=== PATIENT | male | born 1950 | race Caucasian/White ===

== ENCOUNTER 2017-09-08 18:57 | Inpatient (IN) | payer MEDICARE ==
[~2017-09-08] VITALS: Ht 165.1 cm; Wt 68.1 kg
--- NOTE | 2017-09-08 19:06 | PHYS DOC ---
Adult General Chief Complaint Chief Complaint: CHEST PAIN HPI HPI Patient is a 66 year old male presenting to the emergency department for evaluation of substernal chest pain that started approximately 45 minutes prior to arrival. He Says that his gait has been off and [place] and [place] forward striking his chest. Is that the trauma itself is what caused his chest to start hurting. Patient says it is achy. He has some shortness of breath with it but no nausea vomiting or diaphoresis. Patient is a very poor vasculopath and his had triple bypass surgery in 2009 and he says 10-12 stents in his heart and multiple stents in his leg as well. He is a heavy smoker and has hypertension and high cholesterol but no diabetes. He already took a 325 mg aspirin prior to arrival. Patient says that he takes a Plavix daily as well. Review of Systems Review of Systems Constitutional: Denies fever or chills [] Eyes: Denies change in visual acuity, redness, or eye pain [] HENT: Denies nasal congestion or sore throat [] Respiratory: Denies cough or shortness of breath [] Cardiovascular: + CP GI: Denies abdominal pain, nausea, vomiting, bloody stools or diarrhea [] : Denies dysuria or hematuria [] Musculoskeletal: Denies back pain or joint pain [] Integument: Denies rash or skin lesions [] Neurologic: Denies headache, focal weakness or sensory changes [] Current Medications Current Medications Current Medications Medications (Trade) Dose Ordered Sig/Paul Start Time Stop Time Status Last Admin Dose Admin Fentanyl Citrate (Fentanyl 2ml Vial) 50 mcg PRN Q2HR PRN 09/08/17 20:15 09/09/17 20:14 Ondansetron HCl (Zofran) 4 mg PRN Q8HRS PRN 09/08/17 20:15 09/09/17 20:14 Allergies Allergies Allergies Coded Allergies Type Severity Reaction Last Updated Verified No Known Drug Allergies 09/08/17 No Physical Exam Physical Exam Constitutional: Well developed, well nourished, no acute distress, non-toxic appearance. [] HENT: Normocephalic, atraumatic, bilateral external ears normal, oropharynx moist, no oral exudates, nose normal. [] Eyes: PERRLA, EOMI, conjunctiva normal, no discharge. [] Neck: Normal range of motion, no tenderness, supple, no stridor. [] Cardiovascular:Heart rate regular rhythm, no murmur [] Lungs & Thorax: Bilateral breath sounds clear to auscultation [] Abdomen: Bowel sounds normal, soft, no tenderness, no masses, no pulsatile masses. [] Skin: Warm, dry, no erythema, no rash. [] Back: No tenderness, no CVA tenderness. [] Extremities: No tenderness, no cyanosis, no clubbing, ROM intact, no edema. [] Neurologic: Alert and oriented X 3, normal motor function, normal sensory function, no focal deficits noted. [] Current Patient Data Vital Signs Vital Signs Date Time Temp Pulse Resp B/P (MAP) Pulse Ox O2 Delivery O2 Flow Rate FiO2 09/08/17 20:05 91 22 142/64 (90) 97 Room Air 09/08/17 19:08 97.7 97.7 Lab Values Laboratory Tests Test 09/08/17 19:15 09/08/17 19:20 White Blood Count 6.2 x10^3/uL (4.0-11.0) Red Blood Count 3.77 x10^6/uL (4.30-5.70) L Hemoglobin 10.4 g/dL (13.0-17.5) L Hematocrit 32.5 % (39.0-53.0) L Mean Corpuscular Volume 86 fL (79-100) Mean Corpuscular Hemoglobin 28 pg (25-35) Mean Corpuscular Hemoglobin Concent 32 g/dL (31-37) Red Cell Distribution Width 16.0 % (11.5-14.5) H Platelet Count 281 x10^3/uL (140-400) Neutrophils (%) (Auto) 62 % (31-73) Lymphocytes (%) (Auto) 24 % (24-48) Monocytes (%) (Auto) 11 % (0-9) H Eosinophils (%) (Auto) 1 % (0-3) Basophils (%) (Auto) 2 % (0-3) Neutrophils # (Auto) 3.8 x10^3uL (1.8-7.7) Lymphocytes # (Auto) 1.5 x10^3/uL (1.0-4.8) Monocytes # (Auto) 0.7 x10^3/uL (0.0-1.1) Eosinophils # (Auto) 0.1 x10^3/uL (0.0-0.7) Basophils # (Auto) 0.1 x10^3/uL (0.0-0.2) Prothrombin Time 13.4 SEC (11.7-14.0) Prothrombin Time INR 1.1 (0.8-1.1) PTT 30 SEC (24-38) Sodium Level 143 mmol/L (136-145) Potassium Level 3.5 mmol/L (3.5-5.1) Chloride Level 106 mmol/L (98-107) Carbon Dioxide Level 26 mmol/L (21-32) Anion Gap 11 (6-14) Blood Urea Nitrogen 23 mg/dL (8-26) Creatinine 1.0 mg/dL (0.7-1.3) Estimated GFR (Cockcroft-Gault) 74.3 BUN/Creatinine Ratio 23 (6-20) H Glucose Level 104 mg/dL (70-99) H Calcium Level 9.1 mg/dL (8.5-10.1) Magnesium Level 2.2 mg/dL (1.8-2.4) Total Bilirubin 0.3 mg/dL (0.2-1.0) Aspartate Amino Transferase (AST) 13 U/L (15-37) L Alanine Aminotransferase (ALT) 15 U/L (16-63) L Alkaline Phosphatase 140 U/L (46-116) H Creatine Kinase 57 U/L (39-308) Troponin I Quantitative 0.121 ng/mL (0.000-0.055) VE-Asc-P-Type Natriuretic Peptide 57193 pg/mL (0-124) H Total Protein 7.5 g/dL (6.4-8.2) Albumin 3.7 g/dL (3.4-5.0) Albumin/Globulin Ratio 1.0 (1.0-1.7) Lipase 83 U/L (73-393) Ethyl Alcohol Level < 10 mg/dL (0-10) Urine Opiates Screen Neg (NEG) Urine Methadone Screen Neg (NEG) Urine Barbiturates Pos (NEG) Urine Phencyclidine Screen Neg (NEG) Urine Amphetamine/Methamphetamine Neg (NEG) Urine Benzodiazepines Screen Pos (NEG) Urine Cocaine Screen Neg (NEG) Urine Cannabinoids Screen Neg (NEG) Urine Ethyl Alcohol Neg (NEG) Laboratory Tests 09/08/17 19:15 Laboratory Tests 09/08/17 19:15 EKG EKG Sinus rhythm at 99 beats per minutes with leftward axis no obvious ST elevation or depression with inverted T waves in leads aVL and V1 and V2. Radiology/Procedures Radiology/Procedures Normal mediastinum with cardiomegaly no obvious free air pneumothorax or opacity Course & Med Decision Making Course & Med Decision Making Patient with more of a traumatic description of his chest pain. We'll check labs and reassess symptoms. Of note patient said that he did just have a heart catheterization 3-4 months ago at [facility]. Troponin is slightly elevated and I have no old labs to compare to. Patient already received aspirin and he does take Plavix. Will speak to cardiology and defer further anticoagulation at this point. Patient admitted to the CVC unit in guarded condition. Dragon Disclaimer Dragon Disclaimer This electronic medical record was generated, in whole or in part, using a voice recognition dictation system. Departure Departure Impression: Primary Impression: NSTEMI (non-ST elevated myocardial infarction) Additional Impression: Elevated brain natriuretic peptide (BNP) level Disposition: ADMITTED INPATIENT Admitting Physician: Other ([facility]) Condition: GUARDED Problem Qualifiers SHERI MEHTA DO Sep 08, 2017 19:06
[2017-09-08] MEDS ORDERED: fentaNYL PF VIAL 100 MCG/2 ML VIAL IV ONE (19:15)
[2017-09-08 19:26] LABS: BASO # 0.1 x10^3/uL (0.0-0.2); BASO % 2 % (0-3); EOS % 1 % (0-3); HEMATOCRIT 32.5 % (39.0-53.0); HEMOGLOBIN 10.4 g/dL (13.0-17.5); LYMPH # 1.5 x10^3/uL (1.0-4.8); LYMPH % 24 % (24-48); MEAN CORPUSCULAR HEMOGLOBIN 28 pg (25-35); MEAN CORPUSCULAR HGB CONC 32 g/dL (31-37); MEAN CORPUSCULAR VOLUME 86 fL (79-100); MONO % 11 % (0-9); NEUT % 62 % (31-73); PLATELET COUNT 281 x10^3/uL (140-400); RED BLOOD COUNT 3.77 x10^6/uL (4.30-5.70); WHITE BLOOD COUNT 6.2 x10^3/uL (4.0-11.0)
[2017-09-08 19:32] LABS: BARBITURATES POS (NEG); BENZODIAZEPINES POS (NEG); CANNABINOIDS NEG (NEG); COCAINE NEG (NEG); METHADONE NEG (NEG); OPIATES NEG (NEG); PHENCYCLIDINE NEG (NEG)
[2017-09-08 19:36] LABS: INR 1.1 (0.8-1.1); PROTHROMBIN TIME PATIENT 13.4 SEC (11.7-14.0)
[2017-09-08 19:41] LABS: CALCIUM 9.1 mg/dL (8.5-10.1); GFR 74.3; POTASSIUM 3.5 mmol/L (3.5-5.1)
[2017-09-08 19:47] LABS: ALBUMIN 3.7 g/dL (3.4-5.0); MAGNESIUM 2.2 mg/dL (1.8-2.4); TOTAL BILIRUBIN 0.3 mg/dL (0.2-1.0); TOTAL PROTEIN 7.5 g/dL (6.4-8.2)
--- NOTE | 2017-09-08 20:08 | RAD ---
CT scan of the head without contrast 09/08/2017 Clinical History: Multiple falls, weakness. Head trauma. Technique: Unenhanced, contiguous, 5 mm axial sections were obtained through the head. Findings: Comparison study is dated 07/05/2017. There is generalized parenchymal atrophy. Areas of decreased attenuation are seen within the periventricular and subcortical white matter of both cerebral hemispheres consistent with areas of small vessel ischemic disease. An area of encephalomalacia is seen involving the superior right frontal/parietal lobe. No acute parenchymal abnormality is seen. No extra-axial fluid collection is noted. No skull fracture is seen. Impression: No acute intracranial abnormality is seen. Electronically signed by: Rafi Carlson MD (09/08/2017 8:04 PM) [facility]
[2017-09-08] MEDS ORDERED: fentaNYL PF VIAL 100 MCG/2 ML VIAL IV PRN (20:15)
[2017-09-08] MEDS ORDERED: ONDANSETRON PF 4 MG/2 ML VIAL. IV PRN (20:15)
[2017-09-08 20:54] VITALS: BP 121/50
[2017-09-08] MEDS ORDERED: levothyroxine PO (21:16)
[2017-09-08] MEDS ORDERED: METO50TA6 PO (21:16)
[2017-09-08] MEDS ORDERED: RIVA20TA2 PO (21:16)
[2017-09-08] MEDS ORDERED: cholesterol med PO (21:16)
[2017-09-08] MEDS ORDERED: MORPHINE SULFATE 2 MG/ML DISP.SYRIN. IV PRN (21:45)
[2017-09-08] MEDS ORDERED: NITROGLYCERIN PREMIX 250 ML IV PRN (21:45)
--- NOTE | 2017-09-08 21:50 | EKG ---
[facility] [address] [place] [address] Test Date: 2017-09-08 Test Time: 21:47:26 Pat Name: SHERI DAWKINS Department: Room: [facility] Gender: M Back Office Medical Assistant: AKHIL : 1950 Requested By: SHERI MEHTA Order Number: [id number] Reading MD: Jose Raul Garcia Measurements Intervals [place] Rate: 81 P: 128 MN: 166 QRS: -54 QRSD: 96 T: 131 QT: 416 QTc: 484 Interpretive Statements SINUS RHYTHM VENTRICULAR PREMATURE COMPLEX(ES) LEFT ANTERIOR FASCICULAR BLOCK T ABNORMALITY IN LATERAL LEADS PROLONGED QT ABNORMAL ECG Electronically Signed On 09-20-2017 14:05:00 CANCER PROGRAM COORDINATOR by Jose Raul Garcia
[2017-09-08 22:15] VITALS: BP 127/58
[2017-09-08 22:30] VITALS: BP 114/55
[2017-09-08 22:45] VITALS: BP 124/58
[2017-09-08 23:24] VITALS: BP 114/55
[2017-09-08] MEDS: MORPHINE SULFATE 4 MG/ML DISP.SYRIN. IV PRN (23:24)
[2017-09-09] VITALS (13 sets, daily range): BP systolic 73–132; BP diastolic 32–60
[2017-09-09] MEDS: MORPHINE SULFATE 4 MG/ML DISP.SYRIN. IV PRN ×5 (01:34→11:27)
[2017-09-09 02:34] LABS: BASO # 0.1 x10^3/uL (0.0-0.2); BASO % 2 % (0-3); EOS % 3 % (0-3); HEMATOCRIT 25.9 % (39.0-53.0); HEMOGLOBIN 8.2 g/dL (13.0-17.5); LYMPH # 1.8 x10^3/uL (1.0-4.8); LYMPH % 34 % (24-48); MEAN CORPUSCULAR HEMOGLOBIN 27 pg (25-35); MEAN CORPUSCULAR HGB CONC 32 g/dL (31-37); MEAN CORPUSCULAR VOLUME 86 fL (79-100); MONO % 15 % (0-9); NEUT % 46 % (31-73); PLATELET COUNT 235 x10^3/uL (140-400); RED BLOOD COUNT 3.01 x10^6/uL (4.30-5.70); WHITE BLOOD COUNT 5.4 x10^3/uL (4.0-11.0)
[2017-09-09 02:51] LABS: CALCIUM 8.3 mg/dL (8.5-10.1); CREATININE 0.9 mg/dL (0.7-1.3); GFR 83.9; POTASSIUM 4.3 mmol/L (3.5-5.1)
[2017-09-09] MEDS ORDERED: LEVO100T5 PO (05:34)
[2017-09-09] MEDS ORDERED: ATOR40TA59 PO (05:34)
--- NOTE | 2017-09-09 08:05 | RAD ---
Single view chest History:Chest pain today An AP view of the chest is submitted. Comparison: None. Findings: There has been a median sternotomy. Pericardial cardiac silhouette is borderline enlarged. There is atherosclerotic calcification near aortic arch. There is no lobar infiltrate, pleural fluid, pneumothorax. Impression: 1. No acute radiographic abnormality is identified.
[2017-09-09] MEDS ORDERED: FLU VACC QS2017-18 (36MOS+)/PF 0.5 ML SYRINGE. VAX IM ONE (09:00)
[2017-09-09] MEDS ORDERED: INFLUENZA VAX SCREEN BY RX. MC ONE (09:00)
--- NOTE | 2017-09-09 11:22 | SSS ---
ADMIT DATE: 09/09/2017 CHIEF COMPLAINT: Chest pain. HISTORY OF PRESENT ILLNESS: The patient is a pleasant 66-year-old male who has had a history of bypass and he has got 12 cardiac stents as well. Basically presented with chest pain. He has been following as well. I discussed the case with ER physician. We have admitted him. We are going to consult Cardiology. The patient currently is being examined on the cardiac floor. PAST MEDICAL HISTORY: Cardiac stents, coronary artery bypass grafting, hyperlipidemia, hypothyroidism, hypertension, chronic anticoagulation. ALLERGIES: None. FAMILY HISTORY: Coronary artery disease. SOCIAL HISTORY: Does not drink, smoke or take drugs. He is and retired. MEDICATIONS: Reviewed. Please refer to the MRAD. REVIEW OF SYSTEMS: GENERAL: No history of weight change, weakness or fevers. SKIN: No bruising, hair changes or rashes. EYES: No blurred, double or loss of vision. NOSE AND THROAT: No history of nosebleeds, hoarseness or sore throat. HEART: No history of palpitations, chest pain or shortness of breath on exertion. LUNGS: Denies cough, hemoptysis, wheezing or shortness of breath. GASTROINTESTINAL: Denies changes in appetite, nausea, vomiting, diarrhea or constipation. GENITOURINARY: No history of frequency, urgency, hesitancy or nocturia. NEUROLOGIC: Denies history of numbness, tingling, tremor or weakness. PSYCHIATRIC: No history of panic, anxiety or depression. ENDOCRINE: No history of heat or cold intolerance, polyuria or polydipsia. EXTREMITIES: Denies muscle weakness, joint pain, pain on walking or stiffness. PHYSICAL EXAMINATION: VITAL SIGNS: Temperature afebrile, pulse 98, respirations 16, blood pressure 102/54. GENERAL: He is alert, cooperative. HEART: Normal S1, S2. LUNGS: Clear. ABDOMEN: Soft. EXTREMITIES: No edema. SKIN: No rashes. ENDOCRINE: No thyromegaly. LYMPHATICS: No cervical nodes. HEMATOPOIETIC: No bruising. LABORATORY DATA: Electrolytes are normal. Drug screen positive for barbiturates. White count 6, hemoglobin 10, platelets 201. Troponin was slightly high at 0.12. BNP is high at 11,726. ASSESSMENT AND PLAN: Chest pain, rule out recurrent coronary disease. The patient has been admitted. We will consult Cardiology. We will continue home meds, serial enzymes, serial EKGs. JUDYL Lewis SUN DO DR: FAIZAN/nyla JOB#: [id number] / [id number]
[2017-09-09] MEDS ORDERED: ANTI-COAG MONITOR BY PHARMACY. MC PRN (11:30)
--- NOTE | 2017-09-09 11:34 | EKG ---
[facility] [address] [place] [address] Test Date: 2017-09-08 Test Time: 19:06:33 Pat Name: SHERI DAWKINS Department: Room: 206 Gender: M Personal Attendant: : 1950 Requested By: TRISTAN ORTIZ Order Number: [id number] Reading MD: Jose Raul Garcia Measurements Intervals [place] Rate: 99 P: -24 CT: 142 QRS: -54 QRSD: 98 T: 108 QT: 384 QTc: 499 Interpretive Statements SINUS RHYTHM LEFT ATRIAL ABNORMALITY ABNORMAL LEFT AXIS DEVIATION LEFT ANTERIOR FASCICULAR BLOCK LVH WITH REPOLARIZATION ABNORMALITY PROLONGED QT ABNORMAL ECG Electronically Signed On 09-20-2017 14:04:35 FIELD SUPERVISOR SEED PRODUCTION by Jose Raul Garcia
[2017-09-09] MEDS ORDERED: METOPROLOL TART IMMED RELEASE 50 MG TABLET. PO SCH (12:00)
[2017-09-09] MEDS ORDERED: LEVOTHYROXINE 100 MCG TABLET PO SCH (12:00)
--- NOTE | 2017-09-09 14:39 | CONS ---
DATE OF CONSULTATION: 09/09/2017 REASON FOR CONSULTATION: Chest pain, elevated troponin. HISTORY OF PRESENT ILLNESS: The patient is a pleasant 66-year-old man with past medical history as noted below who presented to the ER after what appears to be a mechanical fall during which he was trying to get into his car and hit his chest and head against the car and began to have some intense pain. Upon evaluation in the Emergency Department due to his vascular history, he was found to have an elevated troponin and this prompted admission to the hospital for further treatment and evaluation. In speaking with the patient, he reports that at baseline, he is able to perform activities of daily living without any significant limitations. He does use a motorized wheelchair when he does things like grocery shopping. Overnight, the patient had initially received some morphine and nitroglycerin and his biomarkers were trended out and were minimally elevated at 0.145. This morning the patient denies any chest pain. He has been ambulating around the room without any chest pain. He is mostly limited due to back and musculoskeletal issues. He does not have any syncope or palpitations. He has had excessive history of cardiovascular issues and most recently in May of 2016 underwent percutaneous coronary intervention to protected left main and left circumflex stenosis. He also has a history of ischemic cardiomyopathy and paroxysmal atrial fibrillation. PAST MEDICAL HISTORY: 1. Coronary artery disease, status post 3-vessel bypass with RODRIGUEZ to LAD, saphenous vein graft to the obtuse marginal and saphenous vein graft to the PDA. 2. Paroxysmal atrial fibrillation, on anticoagulation with Xarelto and treated with sotalol. 4. Ischemic cardiomyopathy with ejection fraction of 50%. 5. Peripheral arterial disease status post percutaneous intervention to the lower extremities as well as bilateral carotid endarterectomies. 6. History of prior cerebrovascular accident without residual deficits. 7. History of hyperthyroidism. 8. Chronic obstructive pulmonary disease secondary to tobacco abuse. 9. Hypertension. 10. Dyslipidemia. 11. History of lumbar radiculopathy and degenerative joint disease with significant pain syndrome. SOCIAL HISTORY: The patient lives with his girlfriend. He is currently thinking about moving to [place]. He continues to smoke tobacco. FAMILY HISTORY: Noncontributory. REVIEW OF SYSTEMS: Negative for 10 out of 14 systems reviewed, unless otherwise mentioned above in HPI. PHYSICAL EXAMINATION: VITAL SIGNS: Afebrile, blood pressure 103/52, respiratory rate 18, pulse ox 97% on room air. GENERAL: He is mildly debilitated due to musculoskeletal pain and degenerative joint disease. HEAD AND NECK: Unremarkable except for bilateral carotid endarterectomy scars. CARDIAC: Regular rate and rhythm with a 3/6 systolic murmur heard throughout the precordium. Neck veins are flat. There are no carotid bruits. LUNGS: Bilaterally decreased breath sounds. ABDOMEN: Soft, nontender, nondistended. EXTREMITIES: No clubbing, cyanosis or edema. 2+ radial and 1+ posterior tibial pulses. NEUROLOGIC: No focal deficits, but his gait is unsteady secondary to his degenerative joint disease. MUSCULOSKELETAL: No obvious trauma to the chest wall noted. No pain on palpation of the chest wall. DIAGNOSTIC STUDIES: Hemoglobin 8.2, decreased from 10.4, platelets 235, creatinine 0.9. Troponin 0.121, trending up to 0.150. BNP 11,726. Urine toxicology positive for benzodiazepines. Head CT is negative for any acute pathology. Chest x-ray is unremarkable for any acute infiltrates or diffuse edema. EKG demonstrates sinus rhythm with PVC and left axis deviation with lateral T-wave inversions. IMPRESSION: 1. Acute on chronic systolic and diastolic heart failure based on elevated BNP and symptomatology. 2. Mechanical fall leading to chest wall pain. 3. Elevated biomarkers likely in the setting of chronic ischemic cardiomyopathy. 4. Acute on chronic anemia. RECOMMENDATIONS: 1. I had a long discussion with the patient today in regards to his symptomatology. His presentation is quite atypical and he has a minimal troponin elevation which is likely related to his chronic ischemic cardiomyopathy. His previous cardiac catheterization in May of 2016 revealed extensive coronary artery disease and he underwent left main stenting. He does have recent anemia and in this setting I discussed the risks and benefits of further evaluation, but at this time the patient is not willing to stay for any further evaluation. He is currently dressed and wishes to leave the hospital. He is chest pain free and I advised him that given his anemia, he should probably hold his Xarelto until a repeat laboratory evaluation is done next week. I have advised him to follow up with his administration assistant but he reports that he is moving to [place] in the near future and will follow up with the administration assistant in [place]. At this present time, he does not appear to have any ST elevations on EKG or telemetry. He is chest pain free and ambulating well. Thank you for this consultation. TRISTAN ORTIZ MD DR: KIA/nyla JOB#: [id number] / [id number]
[2017-09-09] MEDS ORDERED: RIVAROXABAN 10 MG TABLET. PO SCH (17:00)
[2017-09-09] MEDS ORDERED: ATORVASTATIN CALCIUM 40 MG TABLET. PO SCH (21:00)
== END 2017-09-09 15:52 | disposition home or self-care (01) | DRG 280 ==
LOC: ER 18:57 → 2 NORTH 19:50
PROVIDERS: ADMIT Family Medicine; ATTEND Internal Medicine
DX: I21.4 Non-ST elevation (NSTEMI) myocardial infarction (principal); I50.43 Acute on chronic combined systolic (congestive) and diastolic (congestive) heart failure; I48.0 Paroxysmal atrial fibrillation; I73.9 Peripheral vascular disease, unspecified; I25.10 Atherosclerotic heart disease of native coronary artery without angina pectoris; J44.9 Chronic obstructive pulmonary disease, unspecified; D64.9 Anemia, unspecified; I11.0 Hypertensive heart disease with heart failure; E03.9 Hypothyroidism, unspecified; E78.00 Pure hypercholesterolemia, unspecified; E78.5 Hyperlipidemia, unspecified; F17.200 Nicotine dependence, unspecified, uncomplicated; I25.5 Ischemic cardiomyopathy; Z82.49 Family history of ischemic heart disease and other diseases of the circulatory system; Z86.73 Personal history of transient ischemic attack (TIA), and cerebral infarction without residual deficits; Z95.1 Presence of aortocoronary bypass graft; Z95.5 Presence of coronary angioplasty implant and graft; E05.90 Thyrotoxicosis, unspecified without thyrotoxic crisis or storm; M19.90 Unspecified osteoarthritis, unspecified site
CPT/HCPCS: 36415; 70450; 71010; 80048; 80053; 80307; 82550; 83690; 83735; 83880; 84484; 85025; 85610; 85730; 93005; 96374; 96376; G0480; J2270; J3010; J3490; 99285-25; G0479

== ENCOUNTER 2017-09-10 22:05 | Inpatient (IN) | payer MEDICARE ==
[~2017-09-10] VITALS: Ht 165.1 cm; Wt 68.2 kg
[~2017-09-10 22:05] MED LIST: ATOR40TA59 PO; LEVO100T5 PO; METO50TA6 PO; RIVA20TA2 PO; cholesterol med PO; levothyroxine PO
--- NOTE | 2017-09-10 22:27 | PHYS DOC ---
Past Medical History Past Medical History: CAD, CHF, COPD, High Cholesterol, Hypertension, Stroke Past Surgical History: Cholecystectomy, Coronary Bypass Surgery, Other Additional Past Surgical Histo: HERNIA REPAIR Alcohol Use: None Drug Use: None Adult General Chief Complaint Chief Complaint: CHEST PAIN-CARDIAC NATURE HPI HPI Patient is a 66 year old male who presents with substernal chest pain radiates to his back. He states this started 8:30 9:00 [place] and short of breath. He took 3 nitros without any relief. He states he had his bypass surgery he just didn't feel well overall. States he' s never had pain like this before. He does admit that he still smokes. He just got out of the hospital yesterday for an elevated troponin. He did take a full dose aspirin prior to arrival. Review of Systems Review of Systems Constitutional: Denies fever or chills [] Eyes: Denies change in visual acuity, redness, or eye pain [] HENT: Denies nasal congestion or sore throat [] Respiratory: Denies cough or shortness of breath [] Cardiovascular: No additional information not addressed in HPI [] GI: Denies abdominal pain, nausea, vomiting, bloody stools or diarrhea [] : Denies dysuria or hematuria [] Musculoskeletal: Denies back pain or joint pain [] Integument: Denies rash or skin lesions [] Neurologic: Denies headache, focal weakness or sensory changes [] Endocrine: Denies polyuria or polydipsia [] All other systems were reviewed and found to be within normal limits, except as documented in this note. Current Medications Current Medications Current Medications Medications (Trade) Dose Ordered Sig/[facility] Start Time Stop Time Status Last Admin Dose Admin Morphine Sulfate 2 mg PRN Q15MIN PRN 09/10/17 23:15 09/11/17 23:14 09/11/17 00:49 2 MG Multi-Ingredient Mouthwash/Gargle (Gi Cocktail Single Dose) 15 ml 1X ONCE 09/10/17 23:30 09/10/17 23:31 DC 09/10/17 23:18 15 ML Nitroglycerin (Nitrostat) 0.4 mg PRN Q5MIN PRN 09/10/17 22:30 09/11/17 22:29 Allergies Allergies Allergies Coded Allergies Type Severity Reaction Last Updated Verified No Known Drug Allergies 09/08/17 No Physical Exam Physical Exam Constitutional: Well developed, well nourished, no acute distress, non-toxic appearance. [] HENT: Normocephalic, atraumatic, bilateral external ears normal, oropharynx moist, no oral exudates, nose normal. [] Eyes: PERRLA, EOMI, conjunctiva normal, no discharge. [] Neck: Normal range of motion, no tenderness, supple, no stridor. [] Cardiovascular:Heart rate regular rhythm, 3/6 systolic ejection murmur Lungs & Thorax: Bilateral breath sounds clear to auscultation [] Abdomen: Bowel sounds normal, soft, no tenderness, no masses, no pulsatile masses. [] Skin: Warm, dry, no erythema, no rash. [] Back: No tenderness, no CVA tenderness. [] Extremities: No tenderness, no cyanosis, no clubbing, ROM intact, no edema. [] Neurologic: Alert and oriented X 3, normal motor function, normal sensory function, no focal deficits noted. [] Psychologic: Affect normal, judgement normal, mood normal. [] Current Patient Data Vital Signs Vital Signs Date Time Temp Pulse Resp B/P (MAP) Pulse Ox O2 Delivery O2 Flow Rate FiO2 09/10/17 22:21 97.8 92 18 165/73 (103) 96 Room Air 97.8 Lab Values Laboratory Tests Test 09/10/17 22:26 09/10/17 23:15 White Blood Count 8.2 x10^3/uL (4.0-11.0) Red Blood Count 3.38 x10^6/uL (4.30-5.70) L Hemoglobin 9.5 g/dL (13.0-17.5) L Hematocrit 29.3 % (39.0-53.0) L Mean Corpuscular Volume 87 fL (79-100) Mean Corpuscular Hemoglobin 28 pg (25-35) Mean Corpuscular Hemoglobin Concent 33 g/dL (31-37) Red Cell Distribution Width 15.8 % (11.5-14.5) H Platelet Count 279 x10^3/uL (140-400) Neutrophils (%) (Auto) 66 % (31-73) Lymphocytes (%) (Auto) 18 % (24-48) L Monocytes (%) (Auto) 12 % (0-9) H Eosinophils (%) (Auto) 2 % (0-3) Basophils (%) (Auto) 2 % (0-3) Neutrophils # (Auto) 5.4 x10^3uL (1.8-7.7) Lymphocytes # (Auto) 1.5 x10^3/uL (1.0-4.8) Monocytes # (Auto) 1.0 x10^3/uL (0.0-1.1) Eosinophils # (Auto) 0.2 x10^3/uL (0.0-0.7) Basophils # (Auto) 0.2 x10^3/uL (0.0-0.2) Prothrombin Time 12.7 SEC (11.7-14.0) Prothrombin Time INR 1.0 (0.8-1.1) Sodium Level 140 mmol/L (136-145) Potassium Level 4.4 mmol/L (3.5-5.1) Chloride Level 107 mmol/L (98-107) Carbon Dioxide Level 25 mmol/L (21-32) Anion Gap 8 (6-14) Blood Urea Nitrogen 26 mg/dL (8-26) Creatinine 1.0 mg/dL (0.7-1.3) Estimated GFR (Cockcroft-Gault) 74.3 Glucose Level 96 mg/dL (70-99) Calcium Level 8.7 mg/dL (8.5-10.1) Magnesium Level 2.0 mg/dL (1.8-2.4) Total Bilirubin 0.1 mg/dL (0.2-1.0) L Direct Bilirubin 0.1 mg/dL (0.0-0.2) Aspartate Amino Transferase (AST) 13 U/L (15-37) L Alanine Aminotransferase (ALT) 12 U/L (16-63) L Alkaline Phosphatase 132 U/L (46-116) H Creatine Kinase 57 U/L (39-308) Creatine Kinase MB (Mass) 0.9 ng/mL (0.0-3.6) Creatine Kinase MB Relative Index 1.6 % (0-4) Troponin I Quantitative 0.085 ng/mL (0.000-0.055) PX-[id number]-Type Natriuretic Peptide 8967 pg/mL (0-124) H Total Protein 6.9 g/dL (6.4-8.2) Albumin 3.3 g/dL (3.4-5.0) L Lipase 64 U/L (73-393) L Thyroid Stimulating Hormone (TSH) 5.387 uIU/mL (0.358-3.74) H Urine Collection Type Unknown Urine Color Yellow Urine Clarity Clear Urine pH 6.0 Urine Specific [place] 1.010 Urine Protein Negative mg/dL (NEG-TRACE) Urine Glucose (UA) Negative mg/dL (NEG) Urine Ketones (Stick) Negative mg/dL (NEG) Urine Blood Negative (NEG) Urine Nitrite Negative (NEG) Urine Bilirubin Negative (NEG) Urine Urobilinogen Dipstick 0.2 mg/dL (0.2 mg/dL) Urine Leukocyte Esterase Small (NEG) Urine RBC Occ /HPF (0-2) Urine WBC 5-10 /HPF (0-4) Urine Squamous Epithelial Cells Occ /LPF Urine Bacteria 0 /HPF (0-FEW) Urine Opiates Screen Pos (NEG) Urine Methadone Screen Neg (NEG) Urine Barbiturates Neg (NEG) Urine Phencyclidine Screen Neg (NEG) Urine Amphetamine/Methamphetamine Neg (NEG) Urine Benzodiazepines Screen Pos (NEG) Urine Cocaine Screen Neg (NEG) Urine Cannabinoids Screen Neg (NEG) Urine Ethyl Alcohol Neg (NEG) Laboratory Tests 09/10/17 22:26 Laboratory Tests 09/10/17 22:26 EKG EKG EKG shows sinus rhythm with rate of [address] elevations, T-wave inversion in leads 1, aVL, left axis deviation noted, QTC 472 ms, EKG is unchanged from one dated September 08, 2017, as interpreted by me. Radiology/Procedures Radiology/Procedures Chest x-ray shows previous sternotomy, no pneumothorax, no bony abnormalities, or focal consolidations appreciated, as interpreted by me. [facility] [address] [place] [address] IMAGING REPORT Signed PATIENT: SHERI DAWKINS ACCOUNT: [id number] : 1950 LOCATION: SOUTH AGE: 66 SEX: M EXAM STATUS: ADM IN ORD. PHYSICIAN: ARLYN SEGAL MD REASON: pain to back. R/o aortic disection PROCEDURE: CT ANGIO CHEST ABD PELVIS CT angiogram chest, abdomen pelvis with contrast: Reason for examination: Back pain. Evaluate for aortic dissection. Comparison is made to previous chest CT dated 07/22/2017. Helical images were obtained through the chest, abdomen and pelvis with intravenous administration of 90 cc Omnipaque 350 using angiographic protocol. 3-D MIPS reconstruction was performed in sagittal and coronal planes and volume rendered images were obtained. Exposure: One or more of the following individualized dose reduction techniques were utilized for this examination: 1. Automated exposure control 2. Adjustment of the mA and/or kV according to patient size 3. Use of iterative reconstruction technique. No abnormality seen at the thyroid gland. The trachea and mainstem bronchi show no intraluminal lesions. No abnormality seen at the esophagus. The thoracic aorta shows no aneurysmal dilatation or dissection. The heart size is borderline enlarged with no pericardial effusion evident. There are moderate bilateral pleural effusions present which are new. No infiltrates, nodules or pneumothorax are seen. There are multiple left rib fractures which appear to be showing callus formation consistent with healing fractures. These are unchanged. No abnormality seen at the liver, spleen, adrenal glands or pancreas. The gallbladder surgically absent. The kidneys show a hypodense lesion consistent with a cyst at the upper pole of the left kidney measuring 2.7 cm in size. No renal calculi, hydronephrosis or obstructive uropathy is evident. The abdominal aorta shows no aneurysmal dilatation or evidence of dissection. There is arteriosclerotic calcification in the aorta. There appears be good vascular flow in the celiac axis and superior mesenteric artery and at the renal arteries bilaterally. There is no evidence of diverticulosis or diverticulitis. No abnormality seen at the appendix. No bowel obstruction is seen. A radiopaque density however does appear to be present in the midabdomen probably in the region of the gastric antrum or duodenum and causes a large amount of streak artifact. Recommend clinical correlation. No acute bony abnormalities are identified. There are postoperative changes in the sternum however. No abnormality seen at the bladder, prostate gland or seminal vesicles. No free fluid or free air is seen in the abdomen or pelvis. IMPRESSION: Moderate bilateral pleural effusions. Borderline cardiomegaly. No evidence of thoracic or abdominal aortic aneurysm or dissection. Multiple healing left rib fractures. 2.7 cm cyst in the upper pole of the left kidney. 2.6 cm radiopaque density/foreign body in the mid abdomen possibly in the region of the gastric antrum or duodenum causing streak artifact. Recommend clinical correlation. Electronically signed by: Angy eL MD (09/11/2017 12:49 AM) [facility] DICTATED and SIGNED BY: ANGY LE MD DATE: 09/11/17 0018 CC: ERICK REAL III DO; ARLYN SEGAL MD; AbMarcelinoLIV RIVERA ~ [facility] [address] [place] [address] IMAGING REPORT Signed PATIENT: SHERI DAWKINS ACCOUNT: [id number] : 1950 LOCATION: S[facility]TH AGE: 66 SEX: M EXAM STATUS: ADM IN ORD. PHYSICIAN: ARLYN SEGAL MD REASON: fall with pain PROCEDURE: CT HEAD AND CERVICAL SPINE WO CT head without contrast: Reason for examination: Fell with head and neck pain. Comparison is made to previous examination dated 09/08/2017. Axial images were obtained through the brain. No contrast was administered. The ventricular systems are mildly prominent but symmetric. No midline shift is seen. There is no evidence of intracranial hemorrhage There is encephalomalacia again seen in the right frontal and parietal lobes which is unchanged. There appears to be some generalized cerebral atrophy. No acute infarct, mass or edema is seen. No abnormalities are seen at the orbits. The paranasal sinuses and mastoid air cells are clear. No acute skull abnormality is seen. IMPRESSION: No acute intracranial abnormality evident. CT cervical spine without contrast: Helical images were obtained through the cervical spine from skull base through the thoracic apices. No contrast was administered. Reconstruction was performed in sagittal and coronal planes. The C1 ring is intact. The odontoid process appears to be intact and normally centered between the lateral masses of C1. The cervical vertebral bodies are normally aligned anteriorly and posteriorly. No acute fracture or subluxation is seen. The posterior elements appear to be intact. There are degenerative changes present at the C5-C6 and C6-7 levels with hypertrophic spurs and loss of disc height. Prevertebral soft tissues are normal. No spinal stenosis is evident. IMPRESSION: Degenerative changes at the C5-6 and C6-7 disc levels. No acute abnormality in the cervical spine. Exposure: One or more of the following individualized dose reduction techniques were utilized for this examination: 1. Automated exposure control 2. Adjustment of the mA and/or kV according to patient size 3. Use of iterative reconstruction technique. Electronically signed by: Angy Le MD (09/11/2017 3:25 AM) [facility] DICTATED and SIGNED BY: ANGY LE MD DATE: 09/11/17317 CC: ERICK REAL K III DO; ARLYN SEGAL MD; LIV MEJIAS ~ Impressions: Chest pain Coronary artery disease COPD Closed head injury Neck pain Course & Med Decision Making Course & Med Decision Making Pertinent Labs and Imaging studies reviewed. (See chart for details) CT [place] did not show any signs of dissection. He does have a foreign body in his abdomen that were not sure what this is. His pain is not in this area. He is being admitted for his continued cardiac discomfort. The patient's refusing nitroglycerin. He is in stable condition at this time being admitted to the hospitalist with cardiology consultation. Patient was getting up use a urinal and his feet slipped and he fell backwards hitting his head on the table. Put in a c-collar as precautionary measure. CT of his head and neck was performed. CT head and neck was negative. I removed the c-collar. He has no midline neck tenderness but tender palpation paraspinally. Dragon Disclaimer Dragon Disclaimer This electronic medical record was generated, in whole or in part, using a voice recognition dictation system. Departure Departure Impression: Primary Impression: Chest pain Disposition: ADMITTED INPATIENT Admitting Physician: Erick Real Condition: STABLE Referrals: LIV MEJIAS (PCP) Problem Qualifiers Primary Impression: Chest pain ARLYN SEGAL MD Sep 10, 2017 22:27
[2017-09-10] MEDS ORDERED: NITROGLYCERIN SUBLINGUAL 0.4 MG BOTTLE OF 25. SL PRN (22:30)
[2017-09-10 22:42] LABS: BASO # 0.2 x10^3/uL (0.0-0.2); BASO % 2 % (0-3); EOS % 2 % (0-3); HEMATOCRIT 29.3 % (39.0-53.0); HEMOGLOBIN 9.5 g/dL (13.0-17.5); LYMPH # 1.5 x10^3/uL (1.0-4.8); LYMPH % 18 % (24-48); MEAN CORPUSCULAR HEMOGLOBIN 28 pg (25-35); MEAN CORPUSCULAR HGB CONC 33 g/dL (31-37); MEAN CORPUSCULAR VOLUME 87 fL (79-100); MONO % 12 % (0-9); NEUT % 66 % (31-73); PLATELET COUNT 279 x10^3/uL (140-400); RED BLOOD COUNT 3.38 x10^6/uL (4.30-5.70); RED CELL DISTRIBUTION WIDTH 15.8 % (11.5-14.5); WHITE BLOOD COUNT 8.2 x10^3/uL (4.0-11.0)
[2017-09-10 22:50] LABS: PROTHROMBIN TIME PATIENT 12.7 SEC (11.7-14.0)
[2017-09-10 22:59] LABS: CALCIUM 8.7 mg/dL (8.5-10.1); GFR 74.3; POTASSIUM 4.4 mmol/L (3.5-5.1)
[2017-09-10 23:05] LABS: ALBUMIN 3.3 g/dL (3.4-5.0); DIRECT BILIRUBIN 0.1 mg/dL (0.0-0.2); TOTAL BILIRUBIN 0.1 mg/dL (0.2-1.0); TOTAL PROTEIN 6.9 g/dL (6.4-8.2)
[2017-09-10 23:12] LABS: CKMB MASS 0.9 ng/mL (0.0-3.6)
[2017-09-10] MEDS: MORPHINE SULFATE 2 MG/ML DISP.SYRIN. IV/SQ PRN ×2 (23:18→23:43)
[2017-09-10] MEDS ORDERED: LIDO:MAALOX:DONNATAL 1:1:1 15 ML SINGLE DOSE SWSW ONE (23:30)
[2017-09-10] MEDS ORDERED: CONTRAST GIVEN MC PRN (23:45)
[2017-09-10 23:46] LABS: BILIRUBIN,URINE NEGATIVE (NEG); GLUCOSE,URINE NEGATIVE (NEG); NITRITE,URINE NEGATIVE (NEG); PROTEIN,URINE NEGATIVE (NEG-TRACE); UROBILINOGEN,URINE 0.2 mg/dL (0.2 mg/dL)
[2017-09-11] VITALS (8 sets, daily range): BP systolic 81–128; BP diastolic 33–60
[2017-09-11] MEDS ORDERED: IOHEXOL 300 MG/ML 100ML VIAL. IV ONE
[2017-09-11 00:05] LABS: BARBITURATES NEG (NEG); BENZODIAZEPINES POS (NEG); CANNABINOIDS NEG (NEG); COCAINE NEG (NEG); METHADONE NEG (NEG); OPIATES POS (NEG); PHENCYCLIDINE NEG (NEG)
[2017-09-11] MEDS: MORPHINE SULFATE 2 MG/ML DISP.SYRIN. IV/SQ PRN ×2 (00:11→00:49)
[2017-09-11 00:13] LABS: BACTERIA,URINE 0 /HPF (0-FEW); RBC,URINE OCC /HPF (0-2); SQUAMOUS EPITHELIAL CELL,UR OCC /LPF
--- NOTE | 2017-09-11 00:52 | RAD ---
CT angiogram chest, abdomen pelvis with contrast: Reason for examination: Back pain. Evaluate for aortic dissection. Comparison is made to previous chest CT dated 07/22/2017. Helical images were obtained through the chest, abdomen and pelvis with intravenous administration of 90 cc Omnipaque 350 using angiographic protocol. 3-D MIPS reconstruction was performed in sagittal and coronal planes and volume rendered images were obtained. Exposure: One or more of the following individualized dose reduction techniques were utilized for this examination: 1. Automated exposure control 2. Adjustment of the mA and/or kV according to patient size 3. Use of iterative reconstruction technique. No abnormality seen at the thyroid gland. The trachea and mainstem bronchi show no intraluminal lesions. No abnormality seen at the esophagus. The thoracic aorta shows no aneurysmal dilatation or dissection. The heart size is borderline enlarged with no pericardial effusion evident. There are moderate bilateral pleural effusions present which are new. No infiltrates, nodules or pneumothorax are seen. There are multiple left rib fractures which appear to be showing callus formation consistent with healing fractures. These are unchanged. No abnormality seen at the liver, spleen, adrenal glands or pancreas. The gallbladder surgically absent. The kidneys show a hypodense lesion consistent with a cyst at the upper pole of the left kidney measuring 2.7 cm in size. No renal calculi, hydronephrosis or obstructive uropathy is evident. The abdominal aorta shows no aneurysmal dilatation or evidence of dissection. There is arteriosclerotic calcification in the aorta. There appears be good vascular flow in the celiac axis and superior mesenteric artery and at the renal arteries bilaterally. There is no evidence of diverticulosis or diverticulitis. No abnormality seen at the appendix. No bowel obstruction is seen. A radiopaque density however does appear to be present in the midabdomen probably in the region of the gastric antrum or duodenum and causes a large amount of streak artifact. Recommend clinical correlation. No acute bony abnormalities are identified. There are postoperative changes in the sternum however. No abnormality seen at the bladder, prostate gland or seminal vesicles. No free fluid or free air is seen in the abdomen or pelvis. IMPRESSION: Moderate bilateral pleural effusions. Borderline cardiomegaly. No evidence of thoracic or abdominal aortic aneurysm or dissection. Multiple healing left rib fractures. 2.7 cm cyst in the upper pole of the left kidney. 2.6 cm radiopaque density/foreign body in the mid abdomen possibly in the region of the gastric antrum or duodenum causing streak artifact. Recommend clinical correlation. Electronically signed by: Angy Martin MD (09/11/2017 12:49 AM) [facility]
[2017-09-11] MEDS ORDERED: ONDANSETRON PF 4 MG/2 ML VIAL. IV PRN (01:00)
[2017-09-11] MEDS ORDERED: ONDANSETRON PF 4 MG/2 ML VIAL. IV ONE (01:00)
[2017-09-11] MEDS ORDERED: IPRATRPIUM/ALBUTEROL 0.5/2.5MG 3 ML NEBU. NEB ONE (01:00)
[2017-09-11] MEDS ORDERED: MORPHINE SULFATE 2 MG/ML DISP.SYRIN. IV PRN (01:00)
[2017-09-11] MEDS ORDERED: HYDROmorphone 2 MG/ML VIAL IVP ONE (02:00)
--- NOTE | 2017-09-11 03:28 | RAD ---
CT head without contrast: Reason for examination: Fell with head and neck pain. Comparison is made to previous examination dated 09/08/2017. Axial images were obtained through the brain. No contrast was administered. The ventricular systems are mildly prominent but symmetric. No midline shift is seen. There is no evidence of intracranial hemorrhage There is encephalomalacia again seen in the right frontal and parietal lobes which is unchanged. There appears to be some generalized cerebral atrophy. No acute infarct, mass or edema is seen. No abnormalities are seen at the orbits. The paranasal sinuses and mastoid air cells are clear. No acute skull abnormality is seen. IMPRESSION: No acute intracranial abnormality evident. CT cervical spine without contrast: Helical images were obtained through the cervical spine from skull base through the thoracic apices. No contrast was administered. Reconstruction was performed in sagittal and coronal planes. The C1 ring is intact. The odontoid process appears to be intact and normally centered between the lateral masses of C1. The cervical vertebral bodies are normally aligned anteriorly and posteriorly. No acute fracture or subluxation is seen. The posterior elements appear to be intact. There are degenerative changes present at the C5-C6 and C6-7 levels with hypertrophic spurs and loss of disc height. Prevertebral soft tissues are normal. No spinal stenosis is evident. IMPRESSION: Degenerative changes at the C5-6 and C6-7 disc levels. No acute abnormality in the cervical spine. Exposure: One or more of the following individualized dose reduction techniques were utilized for this examination: 1. Automated exposure control 2. Adjustment of the mA and/or kV according to patient size 3. Use of iterative reconstruction technique. Electronically signed by: Angy Martin MD (09/11/2017 3:25 AM) [facility]
[2017-09-11] MEDS ORDERED: LOSA1TAB22 PO (04:57)
[2017-09-11] MEDS ORDERED: CODE1CAP19 PO (04:57)
[2017-09-11] MEDS ORDERED: LEVO125T5 PO (04:57)
[2017-09-11] MEDS ORDERED: DIAZEPAM10 MG PO (04:57)
[2017-09-11] MEDS ORDERED: RIVA20TA2 PO (04:57)
[2017-09-11] MEDS: HYDROmorphone 2 MG/ML VIAL IV PRN ×5 (05:58→20:17)
[2017-09-11] MEDS ORDERED: INFLUENZA VAX SCREEN BY RX. MC ONE (06:30)
--- NOTE | 2017-09-11 08:15 | RAD ---
Single view chest History:chest pain An AP view of the chest is submitted. Comparison: 09/08/2017. Findings: There again has been a median sternotomy. Event monitor monitored is noted of the left hemithorax. Cardiac silhouette is stable, borderline enlarged. There is no significant pleural fluid or pneumothorax. There is increased opacity right lung base. Impression: 1. There is some increased opacity of the right lung base possibly due to infiltrate.
[2017-09-11] MEDS ORDERED: FLU VACC QS2017-18 (36MOS+)/PF 0.5 ML SYRINGE. VAX IM ONE (09:00)
[2017-09-11] MEDS: METOPROLOL TART IMMED RELEASE 50 MG TABLET. PO SCH ×2 (10:00→22:02)
[2017-09-11] MEDS: LEVOTHYROXINE 125 MCG TABLET PO SCH (10:30)
--- NOTE | 2017-09-11 11:02 | PDOC ---
CARDIOLOGY PROGRESS NOTE SUBJECTIVE: Please see recent consultation note for full details. 66 y.o male with extensive coronary disease presenting with recurrent chest pain. Today denies chest pain but has left hip pain from fall in the ER. OBJECTIVE: Vital SIgns: Vital Signs Date Time Temp Pulse Resp B/P (MAP) Pulse Ox O2 Delivery O2 Flow Rate FiO2 09/11/17 10:05 Room Air 09/11/17 07:00 97.5 66 20 110/53 (72) 95 97.5 09/11/17 02:30 2.0 I & O Intake and Output 09/11/17 07:00 Intake Total 0 ml Output Total 0 ml Balance 0 ml Intake Oral 0 ml Output Urine Total 0 ml Objective: Gen: A/O x 3. NAD CVS: RRR, no m/r/g PULM: Decreased breath sounds bilaterally EXT: Trace edema. Limited pulses. CURRENT MEDICATIONS: Current Medications Medications (Trade) Dose Ordered Sig/Paul Start Time Stop Time Status Last Admin Dose Admin Acetaminophen/ Codeine Phosphate (Tylenol #3) 1 tab PRN Q4HRS PRN 09/11/17 10:30 Albuterol/ Ipratropium (Duoneb) 3 ml 1X ONCE 09/11/17 01:00 09/11/17 01:01 DC 09/11/17 01:08 3 ML Atorvastatin Calcium (Lipitor) 40 mg QHS 09/11/17 21:00 Diazepam (Valium) 20 mg PRN Q6HRS PRN 09/11/17 10:00 Hydromorphone HCl (Dilaudid) 1 mg PRN Q2HR PRN 09/11/17 05:45 09/11/17 10:05 1 MG Influenza Virus Vaccine Quadrival (Fluarix Quad [id number] Syringe) 0.5 ml ONCE ONCE 09/11/17 09:00 09/11/17 09:01 DC Info (Do NOT chart on this entry -- for MONITORING) 1 each PRN DAILY PRN 09/10/17 23:45 09/12/17 23:44 Info (Do NOT chart on this placeholder) 1 each 1X ONCE 09/11/17 06:30 09/11/17 06:31 UNV Iohexol (Omnipaque 300 Mg/ml) 90 ml 1X ONCE 09/11/17 00:00 09/11/17 00:01 DC 09/11/17 00:12 90 ML Levothyroxine Sodium (Synthroid) 125 mcg DAILY 09/11/17 10:30 Metoprolol Tartrate (Lopressor) 50 mg BID 09/11/17 10:00 Morphine Sulfate 2 mg PRN Q2HR PRN 09/11/17 01:00 09/12/17 00:59 Multi-Ingredient Mouthwash/Gargle (Gi Cocktail Single Dose) 15 ml 1X ONCE 09/10/17 23:30 09/10/17 23:31 DC 09/10/17 23:18 15 ML Nitroglycerin (Nitrostat) 0.4 mg PRN Q5MIN PRN 09/10/17 22:30 09/11/17 22:29 Ondansetron HCl (Zofran) 4 mg PRN Q8HRS PRN 09/11/17 01:00 09/12/17 00:59 Rivaroxaban (Xarelto) 20 mg DAILYWSUP 09/11/17 17:00 DIAGNOSTIC TESTING: Trop positive 0.112 BNP > 8000 ASSESSMENT: 1. Known ischemic CMP with elevated troponin and recurrent chest pain. Problems: PLAN: 1. Hold xarelto 2. Plan for LHC on wednesday. Discussed r/b/a with patient and he is agreeable to proceed with LHC Thanks. TRISTAN ORTIZ MD Sep 11, 2017 11:02
--- NOTE | 2017-09-11 11:21 | EKG ---
[facility] [address] [place] [address] Test Date: 2017-09-10 Test Time: 22:15:21 Pat Name: SHERI DAWKINS Department: Room: 263 1 Gender: M Technical Program Manager: : 1950 Requested By: ARLYN SEGAL Order Number: [id number] Reading MD: Jose Raul Garcia Measurements Intervals [place] Rate: 90 P: 9 CA: 158 QRS: -51 QRSD: 96 T: 111 QT: 382 QTc: 472 Interpretive Statements SINUS RHYTHM LEFT ATRIAL ABNORMALITY ABNORMAL LEFT AXIS DEVIATION LEFT ANTERIOR FASCICULAR BLOCK QRS(T) CONTOUR ABNORMALITY CONSIDER ANTEROSEPTAL MYOCARDIAL DAMAGE T ABNORMALITY IN HIGH LATERAL LEADS ABNORMAL ECG Electronically Signed On 09-20-2017 14:15:20 CLIENT SERVICE COORDINATOR by Jose Raul Garcia
--- NOTE | 2017-09-11 11:32 | HP ---
ADMIT DATE: 09/10/2017 CHIEF COMPLAINT: Chest pain. HISTORY OF PRESENT ILLNESS: The patient is a pleasant middle-aged white male who we just discharged a few days ago. Once again, he presents with chest pain, rates it a 7/10. He has associated weakness. He also complains of some left hip pain after a fall. I discussed the case with the Emergency Room physician. We are going to admit the patient and consult Cardiology. I just discussed the case with Dr. Claros as well. He plans to take the patient for a cardiac catheterization on Wednesday. PAST MEDICAL HISTORY: Congestive heart failure, coronary artery disease, chronic obstructive pulmonary disease, hyperlipidemia, hypertension, cholecystectomy, coronary artery bypass surgery, hernia repair, cardiac stents. ALLERGIES: HYDROCODONE. FAMILY HISTORY: Coronary artery disease. SOCIAL HISTORY: Does not drink, smoke or take drugs. MEDICATIONS: Reviewed. REVIEW OF SYSTEMS: GENERAL: No history of weight change, weakness or fevers. SKIN: No bruising, hair changes or rashes. EYES: No blurred, double or loss of vision. NOSE AND THROAT: No history of nosebleeds, hoarseness or sore throat. HEART: He complains of chest pain. LUNGS: Denies cough, hemoptysis, wheezing or shortness of breath. GASTROINTESTINAL: Denies changes in appetite, nausea, vomiting, diarrhea or constipation. GENITOURINARY: No history of frequency, urgency, hesitancy or nocturia. NEUROLOGIC: Denies history of numbness, tingling, tremor or weakness. PSYCHIATRIC: No history of panic, anxiety or depression. ENDOCRINE: No history of heat or cold intolerance, polyuria or polydipsia. EXTREMITIES: He complains of left hip pain. PHYSICAL EXAMINATION: VITAL SIGNS: Temperature afebrile, pulse 92, respirations 18, blood pressure 146/74. GENERAL: He is alert, cooperative. HEART: Normal S1, S2. LUNGS: Clear. ABDOMEN: Soft. EXTREMITIES: No edema. SKIN: No rashes. ENDOCRINE: No thyromegaly. LYMPHATICS: No cervical nodes. HEMATOPOIETIC: No bruising. LABORATORY DATA: Hematology: White cells 8, hemoglobin 9, platelets 279. Electrolytes are normal. Troponin is slightly high at 0.112. ASSESSMENT AND PLAN: Chest pain with elevated troponin in a middle-aged male who has known coronary artery disease. I discussed the case with Dr. Katrapati. Plan is to take him to surgery Wednesday. For now, continue cardiac monitoring, serial enzymes, serial EKGs. PROGNOSIS: Guarded. ERICK SUN DO DR: FAIZAN/nyla JOB#: [id number] / [id number]
[2017-09-11] MEDS: ASPIRIN CHEWABLE 81 MG TABLET. PO SCH (14:03)
[2017-09-11] MEDS ORDERED: RIVAROXABAN 10 MG TABLET. PO SCH (17:00)
[2017-09-11] MEDS: NICOTINE 21MG PATCH. TD SCH (22:02)
[2017-09-11] MEDS: ATORVASTATIN CALCIUM 40 MG TABLET. PO SCH (22:02)
[2017-09-11] MEDS: ACETAMINOPHEN/CODEINE 300/30MG TABLET. PO PRN (22:12)
[2017-09-11] MEDS: diazePAM 5 MG TABLET PO PRN (22:17)
[2017-09-11] MEDS ORDERED: BENZOCAINE/MENTHOL LOZENGE. PO PRN (23:30)
[2017-09-12] MEDS: ALBUTEROL SULFATE 2.5 MG/3 ML NEBU. NEB PRN ×2 (01:52→11:09)
[2017-09-12 03:31] VITALS: BP 123/48
[2017-09-12] MEDS: HYDROmorphone 2 MG/ML VIAL IV PRN ×5 (03:55→20:48)
[2017-09-12 05:25] LABS: BASO # 0.1 x10^3/uL (0.0-0.2); BASO % 2 % (0-3); EOS % 4 % (0-3); HEMATOCRIT 25.1 % (39.0-53.0); HEMOGLOBIN 8.2 g/dL (13.0-17.5); LYMPH # 1.8 x10^3/uL (1.0-4.8); LYMPH % 32 % (24-48); MEAN CORPUSCULAR HEMOGLOBIN 28 pg (25-35); MEAN CORPUSCULAR HGB CONC 33 g/dL (31-37); MEAN CORPUSCULAR VOLUME 86 fL (79-100); MONO % 15 % (0-9); NEUT % 48 % (31-73); PLATELET COUNT 225 x10^3/uL (140-400); RED BLOOD COUNT 2.93 x10^6/uL (4.30-5.70); RED CELL DISTRIBUTION WIDTH 15.8 % (11.5-14.5); WHITE BLOOD COUNT 5.7 x10^3/uL (4.0-11.0)
[2017-09-12 05:51] LABS: CALCIUM 8.3 mg/dL (8.5-10.1); CREATININE 1.2 mg/dL (0.7-1.3); GFR 60.2; POTASSIUM 4.5 mmol/L (3.5-5.1)
[2017-09-12 07:00] VITALS: BP 134/54
[2017-09-12] MEDS ORDERED: DEXTROSE 50% 25 GM / 50ML DISP.SYRIN. IV ONE (07:37)
--- NOTE | 2017-09-12 08:20 | RAD ---
HIP LEFT 2V WITH PELVIS History:Pain after fall Comparison: None Findings:2 views of the left hip and AP view of the pelvis are submitted. No acute fracture is identified by radiographs. There is contrast in the urinary bladder. There are stents in the iliac arteries. Impression: 1.No acute fracture is identified by radiographs.
[2017-09-12] MEDS: NICOTINE 21MG PATCH. TD SCH (08:26)
[2017-09-12] MEDS: METOPROLOL TART IMMED RELEASE 50 MG TABLET. PO SCH ×2 (08:26→20:45)
[2017-09-12] MEDS: LEVOTHYROXINE 125 MCG TABLET PO SCH (08:26)
[2017-09-12] MEDS: ASPIRIN CHEWABLE 81 MG TABLET. PO SCH (08:27)
[2017-09-12 11:00] VITALS: BP 116/43
--- NOTE | 2017-09-12 14:35 | PDOC ---
PROGRESS NOTES Chief Complaint Chief Complaint CAD CHF COPD High Cholesterol Hypertension Stroke Cholecystectomy History of Present Illness History of Present Illness Pt was sitting in bed dressed in hospital attire. He mentioned being concerned about previous falls, and was encouraged to follow up with his PCP on the issue. Vitals Vitals Vital Signs Date Time Temp Pulse Resp B/P (MAP) Pulse Ox O2 Delivery O2 Flow Rate FiO2 09/12/17 11:09 Nasal Cannula 2.0 09/12/17 11:00 97.5 55 16 116/43 (67) 100 97.5 Physical Exam Physical Exam Psych: Mood stated as "ok", affect was normal Eyes: sclera anicteric, no conjunctival injection HENT: MMM, no throat erythema Neuro: regulatory auditor II-XII grossly intact b/l General: Alert, Cooperative, No acute distress Heart: Regular rate, Normal S1, Normal S2, Other (systolic murmur) Lungs: Clear, Other (No rales, rhonchi, wheezes) Extremities: No clubbing, No cyanosis Labs LABS Laboratory Tests Test 09/12/17 04:00 White Blood Count 5.7 x10^3/uL (4.0-11.0) Red Blood Count 2.93 x10^6/uL (4.30-5.70) Hemoglobin 8.2 g/dL (13.0-17.5) Hematocrit 25.1 % (39.0-53.0) Mean Corpuscular Volume 86 fL (79-100) Mean Corpuscular Hemoglobin 28 pg (25-35) Mean Corpuscular Hemoglobin Concent 33 g/dL (31-37) Red Cell Distribution Width 15.8 % (11.5-14.5) Platelet Count 225 x10^3/uL (140-400) Neutrophils (%) (Auto) 48 % (31-73) Lymphocytes (%) (Auto) 32 % (24-48) Monocytes (%) (Auto) 15 % (0-9) Eosinophils (%) (Auto) 4 % (0-3) Basophils (%) (Auto) 2 % (0-3) Neutrophils # (Auto) 2.7 x10^3uL (1.8-7.7) Lymphocytes # (Auto) 1.8 x10^3/uL (1.0-4.8) Monocytes # (Auto) 0.8 x10^3/uL (0.0-1.1) Eosinophils # (Auto) 0.2 x10^3/uL (0.0-0.7) Basophils # (Auto) 0.1 x10^3/uL (0.0-0.2) Sodium Level 137 mmol/L (136-145) Potassium Level 4.5 mmol/L (3.5-5.1) Chloride Level 103 mmol/L (98-107) Carbon Dioxide Level 27 mmol/L (21-32) Anion Gap 7 (6-14) Blood Urea Nitrogen 31 mg/dL (8-26) Creatinine 1.2 mg/dL (0.7-1.3) Estimated GFR (Cockcroft-Gault) 60.2 Glucose Level 102 mg/dL (70-99) Calcium Level 8.3 mg/dL (8.5-10.1) Review of Systems Review of Systems Admits to pleuritic chest pain and shortness of air. Assessment and Plan Assessmemt and Plan Problems Medical Problems: (1) Chest pain Status: Acute ASSESSMENT: CAD CHF COPD High Cholesterol Hypertension Stroke Cholecystectomy PLAN: [facility] planned for tomorrow Appreciate input for subspecialists Continue current meds PT/OT Followup with PCP after discharge Problems: Comment Review of Relevant I have reviewed the following items dewayne (where applicable) has been applied. Labs Laboratory Tests Test 09/10/17 22:26 09/10/17 23:15 09/11/17 06:35 09/11/17 12:45 White Blood Count 8.2 x10^3/uL (4.0-11.0) Red Blood Count 3.38 x10^6/uL (4.30-5.70) Hemoglobin 9.5 g/dL (13.0-17.5) Hematocrit 29.3 % (39.0-53.0) Mean Corpuscular Volume 87 fL (79-100) Mean Corpuscular Hemoglobin 28 pg (25-35) Mean Corpuscular Hemoglobin Concent 33 g/dL (31-37) Red Cell Distribution Width 15.8 % (11.5-14.5) Platelet Count 279 x10^3/uL (140-400) Neutrophils (%) (Auto) 66 % (31-73) Lymphocytes (%) (Auto) 18 % (24-48) Monocytes (%) (Auto) 12 % (0-9) Eosinophils (%) (Auto) 2 % (0-3) Basophils (%) (Auto) 2 % (0-3) Neutrophils # (Auto) 5.4 x10^3uL (1.8-7.7) Lymphocytes # (Auto) 1.5 x10^3/uL (1.0-4.8) Monocytes # (Auto) 1.0 x10^3/uL (0.0-1.1) Eosinophils # (Auto) 0.2 x10^3/uL (0.0-0.7) Basophils # (Auto) 0.2 x10^3/uL (0.0-0.2) Prothrombin Time 12.7 SEC (11.7-14.0) Prothromb Time International Ratio 1.0 (0.8-1.1) Sodium Level 140 mmol/L (136-145) Potassium Level 4.4 mmol/L (3.5-5.1) Chloride Level 107 mmol/L (98-107) Carbon Dioxide Level 25 mmol/L (21-32) Anion Gap 8 (6-14) Blood Urea Nitrogen 26 mg/dL (8-26) Creatinine 1.0 mg/dL (0.7-1.3) Estimated GFR (Cockcroft-Gault) 74.3 Glucose Level 96 mg/dL (70-99) Calcium Level 8.7 mg/dL (8.5-10.1) Magnesium Level 2.0 mg/dL (1.8-2.4) Total Bilirubin 0.1 mg/dL (0.2-1.0) Direct Bilirubin 0.1 mg/dL (0.0-0.2) Aspartate Amino Transf (AST/SGOT) 13 U/L (15-37) Alanine Aminotransferase (ALT/SGPT) 12 U/L (16-63) Alkaline Phosphatase 132 U/L (46-116) Creatine Kinase 57 U/L (39-308) Creatine Kinase MB (Mass) 0.9 ng/mL (0.0-3.6) Creatine Kinase MB Relative Index 1.6 % (0-4) Troponin I Quantitative 0.085 ng/mL (0.000-0.055) 0.112 ng/mL (0.000-0.055) 0.105 ng/mL (0.000-0.055) MA-Iox-Z-Type Natriuretic Peptide 8967 pg/mL (0-124) Total Protein 6.9 g/dL (6.4-8.2) Albumin 3.3 g/dL (3.4-5.0) Lipase 64 U/L (73-393) Thyroid Stimulating Hormone (TSH) 5.387 uIU/mL (0.358-3.74) Urine Collection Type Unknown Urine Color Yellow Urine Clarity Clear Urine pH 6.0 Urine Specific [place] 1.010 Urine Protein Negative mg/dL (NEG-TRACE) Urine Glucose (UA) Negative mg/dL (NEG) Urine Ketones (Stick) Negative mg/dL (NEG) Urine Blood Negative (NEG) Urine Nitrite Negative (NEG) Urine Bilirubin Negative (NEG) Urine Urobilinogen Dipstick 0.2 mg/dL (0.2 mg/dL) Urine Leukocyte Esterase Small (NEG) Urine RBC Occ /HPF (0-2) Urine WBC 5-10 /HPF (0-4) Urine Squamous Epithelial Cells Occ /LPF Urine Bacteria 0 /HPF (0-FEW) Urine Opiates Screen Pos (NEG) Urine Methadone Screen Neg (NEG) Urine Barbiturates Neg (NEG) Urine Phencyclidine Screen Neg (NEG) Urine Amphetamine/Methamphetamine Neg (NEG) Urine Benzodiazepines Screen Pos (NEG) Urine Cocaine Screen Neg (NEG) Urine Cannabinoids Screen Neg (NEG) Urine Ethyl Alcohol Neg (NEG) Test 09/12/17 04:00 White Blood Count 5.7 x10^3/uL (4.0-11.0) Red Blood Count 2.93 x10^6/uL (4.30-5.70) Hemoglobin 8.2 g/dL (13.0-17.5) Hematocrit 25.1 % (39.0-53.0) Mean Corpuscular Volume 86 fL (79-100) Mean Corpuscular Hemoglobin 28 pg (25-35) Mean Corpuscular Hemoglobin Concent 33 g/dL (31-37) Red Cell Distribution Width 15.8 % (11.5-14.5) Platelet Count 225 x10^3/uL (140-400) Neutrophils (%) (Auto) 48 % (31-73) Lymphocytes (%) (Auto) 32 % (24-48) Monocytes (%) (Auto) 15 % (0-9) Eosinophils (%) (Auto) 4 % (0-3) Basophils (%) (Auto) 2 % (0-3) Neutrophils # (Auto) 2.7 x10^3uL (1.8-7.7) Lymphocytes # (Auto) 1.8 x10^3/uL (1.0-4.8) Monocytes # (Auto) 0.8 x10^3/uL (0.0-1.1) Eosinophils # (Auto) 0.2 x10^3/uL (0.0-0.7) Basophils # (Auto) 0.1 x10^3/uL (0.0-0.2) Sodium Level 137 mmol/L (136-145) Potassium Level 4.5 mmol/L (3.5-5.1) Chloride Level 103 mmol/L (98-107) Carbon Dioxide Level 27 mmol/L (21-32) Anion Gap 7 (6-14) Blood Urea Nitrogen 31 mg/dL (8-26) Creatinine 1.2 mg/dL (0.7-1.3) Estimated GFR (Cockcroft-Gault) 60.2 Glucose Level 102 mg/dL (70-99) Calcium Level 8.3 mg/dL (8.5-10.1) Laboratory Tests Test 09/12/17 04:00 White Blood Count 5.7 x10^3/uL (4.0-11.0) Red Blood Count 2.93 x10^6/uL (4.30-5.70) Hemoglobin 8.2 g/dL (13.0-17.5) Hematocrit 25.1 % (39.0-53.0) Mean Corpuscular Volume 86 fL (79-100) Mean Corpuscular Hemoglobin 28 pg (25-35) Mean Corpuscular Hemoglobin Concent 33 g/dL (31-37) Red Cell Distribution Width 15.8 % (11.5-14.5) Platelet Count 225 x10^3/uL (140-400) Neutrophils (%) (Auto) 48 % (31-73) Lymphocytes (%) (Auto) 32 % (24-48) Monocytes (%) (Auto) 15 % (0-9) Eosinophils (%) (Auto) 4 % (0-3) Basophils (%) (Auto) 2 % (0-3) Neutrophils # (Auto) 2.7 x10^3uL (1.8-7.7) Lymphocytes # (Auto) 1.8 x10^3/uL (1.0-4.8) Monocytes # (Auto) 0.8 x10^3/uL (0.0-1.1) Eosinophils # (Auto) 0.2 x10^3/uL (0.0-0.7) Basophils # (Auto) 0.1 x10^3/uL (0.0-0.2) Sodium Level 137 mmol/L (136-145) Potassium Level 4.5 mmol/L (3.5-5.1) Chloride Level 103 mmol/L (98-107) Carbon Dioxide Level 27 mmol/L (21-32) Anion Gap 7 (6-14) Blood Urea Nitrogen 31 mg/dL (8-26) Creatinine 1.2 mg/dL (0.7-1.3) Estimated GFR (Cockcroft-Gault) 60.2 Glucose Level 102 mg/dL (70-99) Calcium Level 8.3 mg/dL (8.5-10.1) Microbiology 09/11/17 Urine Culture - Preliminary, Resulted 09/11/17 Urine Culture Result 1 (ROGER) - Preliminary, Resulted Medications Current Medications Nitroglycerin (Nitrostat) 0.4 mg PRN Q5MIN PRN SL CP RATING > 1/10; Start at 22:30; Stop 09/11/17 at 22:29; Status DC Multi-Ingredient Mouthwash/Gargle (Gi Cocktail Single Dose) 15 ml 1X ONCE SWSW Last administered on 09/10/17 23:18; Start 09/10/17 at 23:30; Stop at 23:31; Status DC Morphine Sulfate 2 mg PRN Q15MIN PRN IV/SQ PAIN GREATER THAN 3/10 Last administered on 09/11/17 00:49; Start 09/10/17 at 23:15; Stop 09/11/17 at 23 :14; Status DC Iohexol (Omnipaque 300 Mg/ml) 90 ml 1X ONCE IV Last administered on 00:12; Start 09/11/17 at 00:00; Stop 09/11/17 at 00:01; Status DC Info (Do NOT chart on this entry -- for MONITORING) 1 each PRN DAILY PRN MC SEE COMMENTS; Start 09/10/17 at 23:45; Stop 09/12/17 at 23:44 Ondansetron HCl (Zofran) 4 mg 1X ONCE IV Last administered on 09/11/17 00:48 ; Start 09/11/17 at 01:00; Stop 09/11/17 at 01:01; Status DC Ondansetron HCl (Zofran) 4 mg PRN Q8HRS PRN IV NAUSEA/VOMITING; Start at 01:00; Stop 09/12/17 at 00:59; Status DC Morphine Sulfate 2 mg PRN Q2HR PRN IV SEVERE PAIN; Start 09/11/17 at 01:00; Stop 09/12/17 at 00:59; Status DC Albuterol/ Ipratropium (Duoneb) 3 ml 1X ONCE NEB Last administered on 01:08; Start 09/11/17 at 01:00; Stop 09/11/17 at 01:01; Status DC Hydromorphone HCl (Dilaudid) 1 mg 1X ONCE IVP Last administered on 09/11/17 01:41; Start 09/11/17 at 02:00; Stop 09/11/17 at 02:01; Status DC Hydromorphone HCl (Dilaudid) 1 mg PRN Q2HR PRN IV SEVERE PAIN Last administered on 09/12/17 08:27; Start 09/11/17 at 05:45 Info (Do NOT chart on this placeholder) 1 each 1X ONCE MC ; Start 09/11/17 at 06:30; Stop 09/11/17 at 06:31; Status UNV Influenza Virus Vaccine Quadrival (Fluarix Quad [id number] Syringe) 0.5 ml ONCE ONCE VAX IM ; Start 09/11/17 at 09:00; Stop 09/11/17 at 09:01; Status DC Atorvastatin Calcium (Lipitor) 40 mg QHS PO Last administered on 09/11/17 22: 02; Start 09/11/17 at 21:00 Levothyroxine Sodium (Synthroid) 125 mcg DAILY PO Last administered on 08:26; Start 09/11/17 at 10:30 Metoprolol Tartrate (Lopressor) 50 mg BID PO Last administered on 09/12/17 08 :26; Start 09/11/17 at 10:00 Acetaminophen/ Codeine Phosphate (Tylenol #3) 1 tab PRN Q4HRS PRN PO PAIN Last administered on 09/11/17 22:12; Start 09/11/17 at 10:30 Diazepam (Valium) 20 mg PRN Q6HRS PRN PO ANXIETY / AGITATION Last administered on 09/11/17 22:17; Start 09/11/17 at 10:00 Rivaroxaban (Xarelto) 20 mg DAILYWSUP PO ; Start 09/11/17 at 17:00; Stop 09/11 at 17:00; Status DC Aspirin (Children'S Aspirin) 81 mg DAILYWBKFT PO Last administered on 08:27; Start 09/11/17 at 12:00 Nicotine (Nicoderm Cq 21mg) 1 patch DAILY TD Last administered on 09/12/17 08 :26; Start 09/11/17 at 22:00 Albuterol Sulfate (Ventolin Neb Soln) 2.5 mg PRN QID PRN NEB SHORTNESS OF BREATH Last administered on 09/12/17 11:09; Start 09/11/17 at 23:30 Throat Lozenges (Cepacol Sore Throat Lozenge) 1 buddy PRN Q2HRS PRN PO SORE THROAT; Start 09/11/17 at 23:30 Active Scripts Active Reported Fiorinal With Codeine #3 Cap (Codeine/Butalbital/Asa/Caffein) 1 Each Capsule 1- 2 Each PO PRN Q4-6HRS PRN Losartan-Hctz 100-25 Mg Tab (Losartan/Hydrochlorothiazide) 1 Each Tablet 1 Tab PO DAILY Diazepam 10 Mg Tablet 20 Mg PO PRN Q6HRS PRN Diazepam 10 Mg Tablet 10 Mg PO PRN Q6HRS PRN Levothyroxine Sodium 125 Mcg Tablet 1 Tab PO DAILY Xarelto (Rivaroxaban) 20 Mg Tablet 20 Mg PO DAILY Atorvastatin Calcium 40 Mg Tablet 1 Tab PO DAILY Metoprolol Tartrate 50 Mg Tablet 1 Tab PO BID Vitals/I & O Vital Sign - Last 24 Hours 09/11/17 09/11/17 09/11/17 09/11/17 15:00 15:50 19:05 19:15 Temp 97.8 98.1 97.8 98.1 Pulse 61 68 Resp 20 18 16 B/P (MAP) 98/45 (62) 81/33 (49) 113/45 (67) Pulse Ox 98 94 O2 Delivery Room Air Room Air 09/11/17 09/11/17 09/11/17 09/11/17 20:00 20:17 22:02 22:12 Pulse 68 Resp 20 20 B/P (MAP) 113/45 Pulse Ox 98 98 O2 Delivery Room Air Room Air Room Air 09/11/17 09/11/17 09/12/17 09/12/17 23:15 23:50 01:53 03:31 Temp 98.0 98.2 98.0 98.2 Pulse 68 61 Resp 18 18 18 B/P (MAP) 115/47 (69) 123/48 (73) Pulse Ox 98 99 91 99 O2 Delivery Nasal Cannula Nasal Cannula Nasal Cannula Room Air O2 Flow Rate 2.0 2.0 2.0 09/12/17 09/12/17 09/12/17 09/12/17 03:55 04:32 07:00 08:00 Temp 97.8 97.8 Pulse 65 Resp 18 18 B/P (MAP) 134/54 (80) Pulse Ox 99 99 96 O2 Delivery Nasal Cannula Nasal Cannula Nasal Cannula O2 Flow Rate 2.0 2.0 2.0 09/12/17 09/12/17 09/12/17 09/12/17 08:26 08:27 08:57 11:00 Temp 97.5 97.5 Pulse 65 55 Resp 18 18 16 B/P (MAP) 134/54 116/43 (67) Pulse Ox 94 100 O2 Delivery Nasal Cannula Nasal Cannula Nasal Cannula O2 Flow Rate 2.0 2.0 2.0 09/12/17 11:09 O2 Delivery Nasal Cannula O2 Flow Rate 2.0 Intake and Output 09/11/17 09/11/17 09/12/17 15:00 23:00 07:00 Intake Total 1230 ml 120 ml Balance 1230 ml 120 ml CASTLE,NIAL K III DO Sep 12, 2017 14:35
[2017-09-12 15:00] VITALS: BP 121/42
[2017-09-12 19:55] VITALS: BP 146/65
[2017-09-12] MEDS: diazePAM 5 MG TABLET PO PRN (20:45)
[2017-09-12] MEDS: ATORVASTATIN CALCIUM 40 MG TABLET. PO SCH (20:46)
[2017-09-12 23:00] VITALS: BP 143/56
[2017-09-13] VITALS (12 sets, daily range): BP systolic 104–181; BP diastolic 39–79
[2017-09-13] MEDS: HYDROmorphone 2 MG/ML VIAL IV PRN ×5 (00:29→15:53)
[2017-09-13] MEDS: ALBUTEROL SULFATE 2.5 MG/3 ML NEBU. NEB PRN ×2 (00:43→04:10)
[2017-09-13] MEDS: diazePAM 5 MG TABLET PO PRN (03:33)
[2017-09-13] MEDS: ACETAMINOPHEN/CODEINE 300/30MG TABLET. PO PRN (04:06)
[2017-09-13 06:58] LABS: BASO # 0.1 x10^3/uL (0.0-0.2); BASO % 1 % (0-3); EOS % 3 % (0-3); HEMATOCRIT 26.4 % (39.0-53.0); HEMOGLOBIN 8.8 g/dL (13.0-17.5); LYMPH # 1.3 x10^3/uL (1.0-4.8); LYMPH % 22 % (24-48); MEAN CORPUSCULAR HEMOGLOBIN 29 pg (25-35); MEAN CORPUSCULAR HGB CONC 33 g/dL (31-37); MEAN CORPUSCULAR VOLUME 86 fL (79-100); MONO % 18 % (0-9); NEUT % 55 % (31-73); PLATELET COUNT 226 x10^3/uL (140-400); RED BLOOD COUNT 3.08 x10^6/uL (4.30-5.70); RED CELL DISTRIBUTION WIDTH 16.2 % (11.5-14.5); WHITE BLOOD COUNT 5.9 x10^3/uL (4.0-11.0)
[2017-09-13 07:39] LABS: CALCIUM 8.6 mg/dL (8.5-10.1); GFR 74.3; POTASSIUM 4.4 mmol/L (3.5-5.1)
[2017-09-13] MEDS: ASPIRIN CHEWABLE 81 MG TABLET. PO SCH (08:00)
[2017-09-13] MEDS: LEVOTHYROXINE 125 MCG TABLET PO SCH (08:32)
[2017-09-13] MEDS: METOPROLOL TART IMMED RELEASE 50 MG TABLET. PO SCH (08:32)
[2017-09-13] MEDS: NICOTINE 21MG PATCH. TD SCH (09:00)
[2017-09-13 11:28] LABS: % EOS 4 % (0-5); PLT ESTIMATE ADEQUATE (ADEQUATE)
[2017-09-13] MEDS ORDERED: IOHEXOL 300 MG/ML 100ML VIAL. ONE ×2 (12:36→13:31)
[2017-09-13] MEDS ORDERED: LIDOCAINE 2% 20 ML VIAL. ONE (12:36)
--- NOTE | 2017-09-13 12:46 | PDOC ---
PROGRESS NOTES Chief Complaint Chief Complaint CAD CHF COPD High Cholesterol Hypertension Stroke Cholecystectomy History of Present Illness History of Present Illness Pt seen In Cardiac Unit Lying down, awaiting [facility] today AAOx3, NAD Vitals Vitals Vital Signs Date Time Temp Pulse Resp B/P (MAP) Pulse Ox O2 Delivery O2 Flow Rate FiO2 09/13/17 10:24 Room Air 09/13/17 09:54 99 09/13/17 07:00 98.1 55 18 104/39 (60) 2.0 98.1 Physical Exam General: Alert, Oriented X3, Cooperative, No acute distress Heart: Regular rate, Normal S1, Normal S2, Other (systolic murmur) Lungs: Clear, Other (No rales, rhonchi, wheezes) Abdomen: Normal bowel sounds, No tenderness Extremities: No clubbing, No cyanosis Skin: No rashes, No breakdown Labs LABS Laboratory Tests Test 09/13/17 06:20 White Blood Count 5.9 x10^3/uL (4.0-11.0) Red Blood Count 3.08 x10^6/uL (4.30-5.70) Hemoglobin 8.8 g/dL (13.0-17.5) Hematocrit 26.4 % (39.0-53.0) Mean Corpuscular Volume 86 fL (79-100) Mean Corpuscular Hemoglobin 29 pg (25-35) Mean Corpuscular Hemoglobin Concent 33 g/dL (31-37) Red Cell Distribution Width 16.2 % (11.5-14.5) Platelet Count 226 x10^3/uL (140-400) Neutrophils (%) (Auto) 55 % (31-73) Lymphocytes (%) (Auto) 22 % (24-48) Monocytes (%) (Auto) 18 % (0-9) Eosinophils (%) (Auto) 3 % (0-3) Basophils (%) (Auto) 1 % (0-3) Neutrophils # (Auto) 3.3 x10^3uL (1.8-7.7) Lymphocytes # (Auto) 1.3 x10^3/uL (1.0-4.8) Monocytes # (Auto) 1.1 x10^3/uL (0.0-1.1) Eosinophils # (Auto) 0.2 x10^3/uL (0.0-0.7) Basophils # (Auto) 0.1 x10^3/uL (0.0-0.2) Segmented Neutrophils % 68 % (35-66) Band Neutrophils % 2 % (0-9) Lymphocytes % 14 % (24-48) Monocytes % 12 % (0-10) Eosinophils % 4 % (0-5) Platelet Estimate Adequate (ADEQUATE) Sodium Level 138 mmol/L (136-145) Potassium Level 4.4 mmol/L (3.5-5.1) Chloride Level 104 mmol/L (98-107) Carbon Dioxide Level 26 mmol/L (21-32) Anion Gap 8 (6-14) Blood Urea Nitrogen 30 mg/dL (8-26) Creatinine 1.0 mg/dL (0.7-1.3) Estimated GFR (Cockcroft-Gault) 74.3 Glucose Level 105 mg/dL (70-99) Calcium Level 8.6 mg/dL (8.5-10.1) Review of Systems Review of Systems General: No Fever, Fatigue, Hunger Pulm:No SOB, Hemoptysis Assessment and Plan Assessmemt and Plan Assessment: Chest pain CAD CHF COPD High Cholesterol Hypertension Stroke Cholecystectomy Plan; [facility] today Continue Cardiac Monitoring Continue Serial Enzymes, EKG Continue Nebulizer Treatment Continue Cardiac Diet Continue Home Meds Continue PT/OT Recheck Labs Problems: Comment Review of Relevant I have reviewed the following items dewayne (where applicable) has been applied. Labs Laboratory Tests Test 09/11/17 12:45 09/12/17 04:00 09/13/17 06:20 Troponin I Quantitative 0.105 ng/mL (0.000-0.055) White Blood Count 5.7 x10^3/uL (4.0-11.0) 5.9 x10^3/uL (4.0-11.0) Red Blood Count 2.93 x10^6/uL (4.30-5.70) 3.08 x10^6/uL (4.30-5.70) Hemoglobin 8.2 g/dL (13.0-17.5) 8.8 g/dL (13.0-17.5) Hematocrit 25.1 % (39.0-53.0) 26.4 % (39.0-53.0) Mean Corpuscular Volume 86 fL (79-100) 86 fL (79-100) Mean Corpuscular Hemoglobin 28 pg (25-35) 29 pg (25-35) Mean Corpuscular Hemoglobin Concent 33 g/dL (31-37) 33 g/dL (31-37) Red Cell Distribution Width 15.8 % (11.5-14.5) 16.2 % (11.5-14.5) Platelet Count 225 x10^3/uL (140-400) 226 x10^3/uL (140-400) Neutrophils (%) (Auto) 48 % (31-73) 55 % (31-73) Lymphocytes (%) (Auto) 32 % (24-48) 22 % (24-48) Monocytes (%) (Auto) 15 % (0-9) 18 % (0-9) Eosinophils (%) (Auto) 4 % (0-3) 3 % (0-3) Basophils (%) (Auto) 2 % (0-3) 1 % (0-3) Neutrophils # (Auto) 2.7 x10^3uL (1.8-7.7) 3.3 x10^3uL (1.8-7.7) Lymphocytes # (Auto) 1.8 x10^3/uL (1.0-4.8) 1.3 x10^3/uL (1.0-4.8) Monocytes # (Auto) 0.8 x10^3/uL (0.0-1.1) 1.1 x10^3/uL (0.0-1.1) Eosinophils # (Auto) 0.2 x10^3/uL (0.0-0.7) 0.2 x10^3/uL (0.0-0.7) Basophils # (Auto) 0.1 x10^3/uL (0.0-0.2) 0.1 x10^3/uL (0.0-0.2) Sodium Level 137 mmol/L (136-145) 138 mmol/L (136-145) Potassium Level 4.5 mmol/L (3.5-5.1) 4.4 mmol/L (3.5-5.1) Chloride Level 103 mmol/L (98-107) 104 mmol/L (98-107) Carbon Dioxide Level 27 mmol/L (21-32) 26 mmol/L (21-32) Anion Gap 7 (6-14) 8 (6-14) Blood Urea Nitrogen 31 mg/dL (8-26) 30 mg/dL (8-26) Creatinine 1.2 mg/dL (0.7-1.3) 1.0 mg/dL (0.7-1.3) Estimated GFR (Cockcroft-Gault) 60.2 74.3 Glucose Level 102 mg/dL (70-99) 105 mg/dL (70-99) Calcium Level 8.3 mg/dL (8.5-10.1) 8.6 mg/dL (8.5-10.1) Segmented Neutrophils % 68 % (35-66) Band Neutrophils % 2 % (0-9) Lymphocytes % 14 % (24-48) Monocytes % 12 % (0-10) Eosinophils % 4 % (0-5) Platelet Estimate Adequate (ADEQUATE) Laboratory Tests Test 09/13/17 06:20 White Blood Count 5.9 x10^3/uL (4.0-11.0) Red Blood Count 3.08 x10^6/uL (4.30-5.70) Hemoglobin 8.8 g/dL (13.0-17.5) Hematocrit 26.4 % (39.0-53.0) Mean Corpuscular Volume 86 fL (79-100) Mean Corpuscular Hemoglobin 29 pg (25-35) Mean Corpuscular Hemoglobin Concent 33 g/dL (31-37) Red Cell Distribution Width 16.2 % (11.5-14.5) Platelet Count 226 x10^3/uL (140-400) Neutrophils (%) (Auto) 55 % (31-73) Lymphocytes (%) (Auto) 22 % (24-48) Monocytes (%) (Auto) 18 % (0-9) Eosinophils (%) (Auto) 3 % (0-3) Basophils (%) (Auto) 1 % (0-3) Neutrophils # (Auto) 3.3 x10^3uL (1.8-7.7) Lymphocytes # (Auto) 1.3 x10^3/uL (1.0-4.8) Monocytes # (Auto) 1.1 x10^3/uL (0.0-1.1) Eosinophils # (Auto) 0.2 x10^3/uL (0.0-0.7) Basophils # (Auto) 0.1 x10^3/uL (0.0-0.2) Segmented Neutrophils % 68 % (35-66) Band Neutrophils % 2 % (0-9) Lymphocytes % 14 % (24-48) Monocytes % 12 % (0-10) Eosinophils % 4 % (0-5) Platelet Estimate Adequate (ADEQUATE) Sodium Level 138 mmol/L (136-145) Potassium Level 4.4 mmol/L (3.5-5.1) Chloride Level 104 mmol/L (98-107) Carbon Dioxide Level 26 mmol/L (21-32) Anion Gap 8 (6-14) Blood Urea Nitrogen 30 mg/dL (8-26) Creatinine 1.0 mg/dL (0.7-1.3) Estimated GFR (Cockcroft-Gault) 74.3 Glucose Level 105 mg/dL (70-99) Calcium Level 8.6 mg/dL (8.5-10.1) Microbiology 09/11/17 Urine Culture - Preliminary, Resulted 09/11/17 Urine Culture Result 1 (ROGER) - Preliminary, Resulted Medications Current Medications Nitroglycerin (Nitrostat) 0.4 mg PRN Q5MIN PRN SL CP RATING > 1/10; Start at 22:30; Stop 09/11/17 at 22:29; Status DC Multi-Ingredient Mouthwash/Gargle (Gi Cocktail Single Dose) 15 ml 1X ONCE SWSW Last administered on 09/10/17 23:18; Start 09/10/17 at 23:30; Stop at 23:31; Status DC Morphine Sulfate 2 mg PRN Q15MIN PRN IV/SQ PAIN GREATER THAN 3/10 Last administered on 09/11/17 00:49; Start 09/10/17 at 23:15; Stop 09/11/17 at 23 :14; Status DC Iohexol (Omnipaque 300 Mg/ml) 90 ml 1X ONCE IV Last administered on 00:12; Start 09/11/17 at 00:00; Stop 09/11/17 at 00:01; Status DC Info (Do NOT chart on this entry -- for MONITORING) 1 each PRN DAILY PRN MC SEE COMMENTS; Start 09/10/17 at 23:45; Stop 09/12/17 at 23:44; Status DC Ondansetron HCl (Zofran) 4 mg 1X ONCE IV Last administered on 09/11/17 00:48 ; Start 09/11/17 at 01:00; Stop 09/11/17 at 01:01; Status DC Ondansetron HCl (Zofran) 4 mg PRN Q8HRS PRN IV NAUSEA/VOMITING; Start at 01:00; Stop 09/12/17 at 00:59; Status DC Morphine Sulfate 2 mg PRN Q2HR PRN IV SEVERE PAIN; Start 09/11/17 at 01:00; Stop 09/12/17 at 00:59; Status DC Albuterol/ Ipratropium (Duoneb) 3 ml 1X ONCE NEB Last administered on 01:08; Start 09/11/17 at 01:00; Stop 09/11/17 at 01:01; Status DC Hydromorphone HCl (Dilaudid) 1 mg 1X ONCE IVP Last administered on 09/11/17 01:41; Start 09/11/17 at 02:00; Stop 09/11/17 at 02:01; Status DC Hydromorphone HCl (Dilaudid) 1 mg PRN Q2HR PRN IV SEVERE PAIN Last administered on 09/13/17 09:54; Start 09/11/17 at 05:45 Info (Do NOT chart on this placeholder) 1 each 1X ONCE MC ; Start 09/11/17 at 06:30; Stop 09/11/17 at 06:31; Status UNV Influenza Virus Vaccine Quadrival (Fluarix Quad [id number] Syringe) 0.5 ml ONCE ONCE VAX IM ; Start 09/11/17 at 09:00; Stop 09/11/17 at 09:01; Status DC Atorvastatin Calcium (Lipitor) 40 mg QHS PO Last administered on 09/12/17 20: 46; Start 09/11/17 at 21:00 Levothyroxine Sodium (Synthroid) 125 mcg DAILY PO Last administered on 08:26; Start 09/11/17 at 10:30 Metoprolol Tartrate (Lopressor) 50 mg BID PO Last administered on 09/12/17 20 :45; Start 09/11/17 at 10:00 Acetaminophen/ Codeine Phosphate (Tylenol #3) 1 tab PRN Q4HRS PRN PO PAIN Last administered on 09/13/17 04:06; Start 09/11/17 at 10:30 Diazepam (Valium) 20 mg PRN Q6HRS PRN PO ANXIETY / AGITATION Last administered on 09/13/17 03:33; Start 09/11/17 at 10:00 Rivaroxaban (Xarelto) 20 mg DAILYWSUP PO ; Start 09/11/17 at 17:00; Stop 09/11 at 17:00; Status DC Aspirin (Children'S Aspirin) 81 mg DAILYWBKFT PO Last administered on 08:27; Start 09/11/17 at 12:00 Nicotine (Nicoderm Cq 21mg) 1 patch DAILY TD Last administered on 09/12/17 08 :26; Start 09/11/17 at 22:00 Albuterol Sulfate (Ventolin Neb Soln) 2.5 mg PRN QID PRN NEB SHORTNESS OF BREATH Last administered on 09/13/17 04:10; Start 09/11/17 at 23:30 Throat Lozenges (Cepacol Sore Throat Lozenge) 1 buddy PRN Q2HRS PRN PO SORE THROAT; Start 09/11/17 at 23:30 Dextrose (Dextrose 50%-Water Syringe) 25 gm STK-MED ONCE IV ; Start 09/12/17 at 07:37; Stop 09/13/17 at 12:16; Status DC Active Scripts Active Reported Fiorinal With Codeine #3 Cap (Codeine/Butalbital/Asa/Caffein) 1 Each Capsule 1- 2 Each PO PRN Q4-6HRS PRN Losartan-Hctz 100-25 Mg Tab (Losartan/Hydrochlorothiazide) 1 Each Tablet 1 Tab PO DAILY Diazepam 10 Mg Tablet 20 Mg PO PRN Q6HRS PRN Levothyroxine Sodium 125 Mcg Tablet 1 Tab PO DAILY Xarelto (Rivaroxaban) 20 Mg Tablet 20 Mg PO DAILY Atorvastatin Calcium 40 Mg Tablet 1 Tab PO DAILY Metoprolol Tartrate 50 Mg Tablet 1 Tab PO BID Vitals/I & O Vital Sign - Last 24 Hours 09/12/17 09/12/17 09/12/17 09/12/17 15:00 16:32 17:02 19:55 Temp 97.7 98.1 97.7 98.1 Pulse 57 62 Resp 16 18 18 16 B/P (MAP) 121/42 (68) 146/65 (92) Pulse Ox 99 95 O2 Delivery Nasal Cannula Room Air Room Air O2 Flow Rate 2.0 09/12/17 09/12/17 09/12/17 09/13/17 20:00 20:45 23:00 00:29 Temp 97.9 97.9 Pulse 62 62 Resp 18 B/P (MAP) 146/65 143/56 (85) Pulse Ox 97 97 O2 Delivery Nasal Cannula Room Air Nasal Cannula O2 Flow Rate 2.0 2.0 09/13/17 09/13/17 09/13/17 09/13/17 00:44 02:57 04:11 06:56 Temp 98.2 98.2 Pulse 57 Resp 18 B/P (MAP) 135/49 (77) Pulse Ox 93 96 93 93 O2 Delivery Nasal Cannula Nasal Cannula Nasal Cannula O2 Flow Rate 2.0 2.0 2.0 2.0 09/13/17 09/13/17 09/13/17 07:00 09:54 10:24 Temp 98.1 98.1 Pulse 55 Resp 18 B/P (MAP) 104/39 (60) Pulse Ox 97 99 O2 Delivery Nasal Cannula Room Air Room Air O2 Flow Rate 2.0 Intake and Output 09/12/17 09/12/17 09/13/17 14:59 22:59 06:59 Intake Total 500 ml Balance 500 ml ERICK SUN III DO Sep 13, 2017 12:46
--- NOTE | 2017-09-13 12:48 | PDOC ---
MODERATE SEDATION ASSESSMENT RISKS/ALTERNATIVES Risks/Alternatives Risks and alternatives of this type of sedation and procedure discussed with: RISK/ALTERNATIVES: Patient H & P ON CHART H & P H & P on chart and reviewed for co-morbid conditions and appropriate labs. H&P ON CHART: Yes STATUS PREG STATUS ASSESSED: N/A MEDS/ALLERGIES REVIEWED Meds/Allergies Reviewed Medications and Allergies including time and route of recently administered narcotics and sedatives. MEDS/ALLERGIES REVIEWED: Yes ASA RATING ASA RATING: III AIRWAY ASSESSMENT Airway Assessment Airway patency, oral function limitations, presence of caps, crowns, dentures, partials, and ability to extend neck assessed. AIRWAY ASSESSMENT: Yes MALLAMPATI SCORE MALLAMPATI SCORE: III PRE-SEDATION ASSESSMENT PRE-SEDATION ASSESSMENT: Yes TRISTAN ORTIZ MD Sep 13, 2017 12:48
[2017-09-13] MEDS ORDERED: fentaNYL PF VIAL 100 MCG/2 ML VIAL ONE ×2 (12:49→13:34)
[2017-09-13] MEDS ORDERED: MIDAZOLAM HCL/PF 2 MG/2 ML VIAL. ONE (12:49)
[2017-09-13] MEDS ORDERED: LIDOCAINE 2% 20 ML VIAL. IJ ONE (13:15)
[2017-09-13] MEDS ORDERED: MIDAZOLAM HCL/PF 2 MG/2 ML VIAL. IV ONE (13:15)
[2017-09-13] MEDS ORDERED: IOHEXOL 300 MG/ML 100ML VIAL. IART ONE (13:15)
[2017-09-13] MEDS ORDERED: fentaNYL PF VIAL 100 MCG/2 ML VIAL IV ONE (13:15)
[2017-09-13] MEDS ORDERED: ISOSORBIDE MONONITRATE ER 30 MG TAB.ER.24H PO SCH (18:15)
[2017-09-13] MEDS ORDERED: RANOLAZINE 500 MG TAB.ER.12H PO SCH (21:00)
--- NOTE | 2017-09-14 10:03 | CARD ---
APPROVED REPORT Procedure(s) performed: Moderate sedation: 67 minutes Coronary angiography Bypass angiography HISTORY The patient is a 66 year-old male with a history of : coronary artery disease, tobacco history() , hy pertension, dyslipidemia. INDICATION The indication(s) include : non-STEMI , Presented with recurrent chest pain x 2. Troponin mildly elev ated and therefore, taken to the [facility] for further evaluation and treatment.. PROCEDURE NARRATIVE The patient was brought electively to the cardiac catheterization lab. A timeout was performed confi rming the patient's name, date of , procedure, and site of procedure. All necessary personnel w ere wearing the appropriate protective equipment and radiation monitor devices. After explaining the risks and benefits of the procedure and alternatives, informed consent was obtained. (See nursing no gabbie for medications administered). The right groin was sterilely prepped and draped in the usual fas hion. The right groin was infiltrated with 10 mL of 2% lidocaine for subcutaneous anesthesia. A 6 F rench sheath was inserted into the right femoral artery with mild difficulty. The J-tipped guide wire would not traverse the external iliac stenosis, therefore a glidewire was used to cross into the aor ta, next, after serial dilation, a 6F sheath was placed. Right and left coronary angiography was per formed using standard JL4 and JR4 catheters. Bypass angiography was performed with an KEI, AR and JR4 catheters. All catheter exchanges and advancements were performed over a guidewire. At case complet ion the right femoral sheath was removed and hemostasis was achieved with manual compression. CORONARY ANGIOGRAPHY: LM is a large caliber vessel with a distal 80% ISR. LAD is a large caliber vessel a patent ostial/proximal stent and a mid 90% stenosis. D1 is a small caliber vessel with an ostial 50% stenosis LCx is a moderate caliber non-dominant vessel with an ostial 90% ISR. The distal vessel is small in c aliber and without significant disease. OM1 is a moderate caliber branching vessel with a 100% ostially occluded stent. The distal vessel is seen to fill via a patent SVG and is free of disease. RCA is a moderate caliber vessel wtih a mid 100% occlusion. The distal vessel is seen to fill via a p atent SVG and has mild diffuse irregularities. GRAFT ANGIOGRAPHY: SVG to RCA - Has an ostial 50% stenosis with pressure dampening and ventriculization upon engagement. SVG to OM1 - Widely patent without anastomotic stenosis. RODRIGUEZ to LAD - Widely patent without anastomotic stenosis. The case was technically challenging due to iliac vascular disease and difficulty with engagement of vein grafts. Conclusion 1. Severe la posta three vessel coronary artery disease with left main involvement. 2. Severe ISR of the LM and LCx stents from 05/2016 3. 3/ grafts patent with likey hemodynamically significant stenosis involving the SVG to RCA Recommendations 1. Due to patient's severe ISR within 1 year of the previously placed stents, his continued smoking a nd contrast load, it was felt that PCI of the SVG to RCA should be deferred and performed only for fa ilure of medical therapy to include anti-anginals and smoking cessation. 2. Initial plan was to try Ranexa but unfortunately the patient signed out AMA 4 hours after his hear t cath.
== END 2017-09-13 18:30 | disposition left against medical advice (07) | DRG 281 ==
LOC: ER 22:05 → 2 SOUTH 23:30
PROVIDERS: ADMIT Internal Medicine; ATTEND Internal Medicine
PROC: B2131ZZ Fluoroscopy of Multiple Coronary Artery Bypass Grafts using Low Osmolar Contrast (ICD-10-PCS; principal; 2017-09-11)
PROC: B2111ZZ Fluoroscopy of Multiple Coronary Arteries using Low Osmolar Contrast (ICD-10-PCS; 2017-09-11)
DX: I21.4 Non-ST elevation (NSTEMI) myocardial infarction (principal); E44.0 Moderate protein-calorie malnutrition; I11.0 Hypertensive heart disease with heart failure; I50.9 Heart failure, unspecified; J44.9 Chronic obstructive pulmonary disease, unspecified; I25.10 Atherosclerotic heart disease of native coronary artery without angina pectoris; E78.00 Pure hypercholesterolemia, unspecified; E78.5 Hyperlipidemia, unspecified; F17.200 Nicotine dependence, unspecified, uncomplicated; I25.5 Ischemic cardiomyopathy; Z82.49 Family history of ischemic heart disease and other diseases of the circulatory system; Z86.73 Personal history of transient ischemic attack (TIA), and cerebral infarction without residual deficits; Z90.49 Acquired absence of other specified parts of digestive tract; Z95.5 Presence of coronary angioplasty implant and graft; Z88.5 Allergy status to narcotic agent; Z53.21 Procedure and treatment not carried out due to patient leaving prior to being seen by health care provider
CPT/HCPCS: 36415; 70450; 71010; 71275; 72125; 73502; 74174; 80048; 80076; 80307; 81001; 82553; 83690; 83735; 83880; 84443; 84484; 85007; 85025; 85610; 87086; 93005; 93455; 94640; 99152; 99153; C1769; C1892; J1170; J1644; J2250; J2270; J2405; J3010; J7613; J7620; Q9967; 99285-25; G0479; J2001